=== PATIENT | male | born 1965 | race African-American/Black ===

== ENCOUNTER 2017-02-09 07:04 | Emergency (ER) | payer MEDICAID ==
[~2017-02-09] VITALS: Ht 185.4 cm; Wt 140.6 kg
[~2017-02-09 07:04] MED LIST: ALBUTEROL SULF8.5 GM INH; AZITHROMYCIN250 MG ORAL; BACTRIM-DS1 EA PO; CLINDAMYCIN HC150 MG ORAL; HYDROCHLOROTH12.5 M2 ORAL; IBUPROFEN600 MG ORAL; KEFLEX500 MG PO; NKM; ROBAXIN-750750 MG PO; TYLENOL #21 EA PO; VICODIN 5-5001 EACH PO
[2017-02-09] MEDS ORDERED: ACETAMINOPHEN-1 EAC1 ORAL (07:55)
--- NOTE | 2017-02-09 07:59 | Emergency Room Report ---
History of Present Illness General Chief Complaint: Lower Extremity Injury Source: Patient, Medical Record Present Illness HPI 51YOM walk-in with left inner knee pain from "torn meniscus." Not sure how it happened. Had outpatient MRI that showed this. Saw Orthopedist in January, got injection. Told to come back in a month. Taking ibuprofen Q8 for pain, "not helping." Pain with ambulation but denies joint instability. Denies fever/chills , knee swelling. Allergies: Coded Allergies: PENICILLINS (Verified Allergy, Intermediate, VOMITING/RASH, 10/19/12) Patient History Past Medical History: none Past Surgical History: none Pertinent Family History: none Social History: Denies: alcohol use, drug use, smoking Immunizations: UTD Reviewed Nursing Documentation: PMH: Agreed, PSxH: Agreed Nursing Documentation-PMH Hx Asthma: Yes Hx Cancer: No Hx Gastrointestinal Problems: Yes - appendectomy in 10/2012 Hx Neurological Problems: No Review of Systems All Other Systems: negative except mentioned in HPI Physical Exam Vital Signs Date Time Temp Pulse Resp B/P Pulse Ox O2 Delivery O2 Flow Rate FiO2 02/09/17 07:14 98.1 69 16 114/66 97 Room Air Sp02 EP Interpretation: reviewed, normal General Appearance: normal inspection, well appearing, no apparent distress, alert, GCS 15, non-toxic Head: normocephalic, atraumatic Eyes: bilateral eye EOMI, bilateral eye PERRL ENT: normal ENT inspection, hearing grossly normal, normal voice Neck: normal inspection, full range of motion, supple, no bony tend Respiratory: normal inspection, lungs clear, normal breath sounds, no respiratory distress, no retraction, no wheezing Cardiovascular #1: regular rate, rhythm, no edema Gastrointestinal: normal inspection, normal bowel sounds, non tender, soft, no guarding, no hernia Genitourinary: no CVA tenderness Musculoskeletal: other - Bilateral lower extremities: Dry skin. Chronic tj stasis dermatitis. Left knee: No joint laxity on anterior drawer test, lateral movement. Neurologic: normal inspection, alert, oriented x3, responsive, french binder III-XII nml as tested, motor strength/tone normal, speech normal Psychiatric: normal inspection, judgement/insight normal, mood/affect normal Skin: normal inspection Medical Decision Making Diagnostic Impression: Primary Impression: Left medial knee pain ER Course Left medial knee pain d/t ?torn meniscus No joint effusion or signs of cellulitis or septic joint No laxity of joint Rx T#3 to take with Ibuprofen, ICE Follow up with Ortho DC home Last Vital Signs Date Time Temp Pulse Resp B/P Pulse Ox O2 Delivery O2 Flow Rate FiO2 02/09/17 07:14 98.1 69 16 114/66 97 Room Air Status: improved Disposition: HOME, SELF-CARE Condition: Improved Scripts Acetaminophen With Codeine (T#3) (TYLENOL #3 TAB*) Y Tab 1 TAB ORAL Q8H Y for For Pain, #30 TAB Prov: ANN-MARIE BONILLA M.D. 02/09/17 Patient Instructions: Knee Pain, [id number] Additional Instructions: - Alternate T#3 with Ibuprofen every4-6 hours for pain - Apply ice to medial aspect of left knee - Follow up with Orthopedist at next appointment ANN-MARIE BONILLA M.D. Feb 09, 2017 07:59
[2017-02-09 08:15] VITALS: BP 130/70
== END 2017-02-09 08:30 | disposition home or self-care (01) ==
LOC: EMR 07:32
DX: M25.562 Pain in left knee (principal); Z88.0 Allergy status to penicillin; Z90.89 Acquired absence of other organs
CPT/HCPCS: 99283

== ENCOUNTER 2018-05-07 06:58 | Emergency (ER) | payer MEDICAID ==
[~2018-05-07] VITALS: Ht 188 cm; Wt 186.0 kg
[~2018-05-07 06:58] MED LIST changes: +ACETAMINOPHEN-1 EAC1 ORAL
[2018-05-07 07:45] VITALS: BP 114/69
--- NOTE | 2018-05-07 08:34 | Emergency Room Report ---
History of Present Illness General Chief Complaint: Chest Pain Present Illness HPI This patient c/o three episodes of mild-mod sharp, 1-2 minute duration substernal chest pain. No sob, no diaphoresis. No similar history. First episode while sitting in class, second while watching tv last night, third this morning. He recalls having an unremarkable stress test about a year ago with PMD. CRF: no known Drove to about a month ago Allergies: Coded Allergies: PENICILLINS (Verified Allergy, Intermediate, VOMITING/RASH, 10/19/12) Nursing Documentation-PMH Hx Asthma: Yes Hx Cancer: No Hx Gastrointestinal Problems: Yes - appendectomy in 10/2012 Hx Neurological Problems: No Review of Systems Constitutional: Reports: no symptoms Eye: Reports: no symptoms ENT: Reports: no symptoms Respiratory: Reports: no symptoms Cardiovascular: Reports: no symptoms Gastrointestinal: Reports: no symptoms Genitourinary: Reports: no symptoms Musculoskeletal: Reports: no symptoms Skin: Reports: no symptoms Psychiatric: Reports: no symptoms Neurological: Reports: no symptoms Endocrine: Reports: no symptoms Hematologic/Lymphatic: Reports: no symptoms Allergic: Reports: no symptoms Physical Exam Vital Signs Date Time Temp Pulse Resp B/P (MAP) Pulse Ox O2 Delivery O2 Flow Rate FiO2 05/07/18 07:33 97.4 72 17 114/69 100 Room Air 97.3 Sp02 EP Interpretation: reviewed, normal General Appearance: normal inspection, well appearing, no apparent distress, alert, GCS 15, non-toxic, obese Head: normocephalic, atraumatic Eyes: bilateral eye normal inspection, bilateral eye PERRL, bilateral eye EOMI ENT: normal ENT inspection, hearing grossly normal, normal pharynx, no angioedema, normal voice, moist mucus membranes Neck: normal inspection, full range of motion, supple, no meningismus, no bony tend Respiratory: normal inspection, lungs clear, normal breath sounds, no rhonchi, no respiratory distress, no retraction, no accessory muscle use, no wheezing Cardiovascular #1: normal inspection, regular rate, rhythm, no edema Gastrointestinal: normal inspection, normal bowel sounds, non tender, soft, no mass, non-distended Musculoskeletal: gait/station normal, normal range of motion Neurologic: normal inspection, alert, oriented x3, responsive, motor strength/ tone normal Psychiatric: normal inspection, judgement/insight normal, memory normal Suicide Risk Assessment: Suicidal Ideation: No Had intent to initiate attempt: No Pt's plan for suicide attempt: No Has means to complete attempt: No Skin: normal inspection, normal color, no rash, warm/dry Medical Decision Making Diagnostic Impression: Primary Impression: Chest pain ER Course EMERGENT LABS AND DIAGNOSTIC STUDIES: Lab Results were reviewed by me and interpreted as below. Unremarkable 12-lead EKG Interpretation by Jake Logan MD: Normal Sinus Rhythm at 62 beats per minute Normal axis QT not prolonged Nonspecific ST-T wave changes Overall impression is normal sinus rhythm Radiology Results as interpreted by Radiology below were reviewed by Jake Logan MD : CXR: NAD Nursing Notes Reviewed Previous Medical Records were requested via the electronic health record. EMERGENCY DEPARTMENT COURSE / MEDICAL DECISION MAKING: The patient was placed on a cafeteria monitor, continuous pulse oximetry, and tests as ordered. My differential diagnosis included: ACS, myocardial infarction, angina, pericarditis, aortic dissection, pleurisy, pleural effusion, pneumothorax, pneumonia, PE, costochondritis, PUD, gastritis, GERD, muscular. I observed the patient for a period of time and the patient felt better. On reassessment, the patient's history, vital signs, exam and studies were all reviewed. I will re-evaluate for further workup and recommendation based on the diagnostic testing results and how the patient responds to treatment. My initial impression was: Atypical chest pain. My final impression was the same. I am not worried about PE, since the patient was not complaining of SOB, and did not have hypoxia, hemoptysis, tachycardia or syncope. Chest x-ray was negative with no signs of acute disease. He was advised to arrive back to the ED for new or worsening symptoms. This patient presents with signs and symptoms potentially concerning for coronary ischemia. While it is not possible to be 100% accurate about the etiology of the patient's chest pain at this time (after an ED evaluation.) The patient's MEGHAN Score is: 0. The patient's HEART Score is: 1. I told the patient that the risk of ACS/ischemia is not zero but is very unlikely. The patient confirmed heard my advice and agreed to see their own physician within two days. In addition the name of the on-call childhood development teacher is provided in the discharge papers. Pt. advised to return for further episodes especially if he were to develop exertional chest pain. MEGHAN: age 65 years or older 0 at least 3 risk factors for coronary artery disease 0 prior coronary stenosis of 50% or more 0 ST-segment deviation on ECG at presentation 0 at least two anginal events in prior 24 hours 0 use of aspirin in the prior seven days 0 elevated serum cardiac biomarkers 0 HEART: (0-2 for five variables) History 0 (sharp, one minute, nonexertional) EKG (ST depr = 1mm) 0 Age (45-65) 1 Risk Factors (1-2) 0 Troponin (1-2x) 0 The patient is a good candidate for outpatient care and will be discharged with instructions to follow up with their PMD in 1-2 days. I explained the findings and plan to the patient, who expressed verbal understanding and agreed with plan for discharge and follow up. The patient was given after care instructions and welcomed to return to the ED for any new or worsening symptoms. The patient was stable at the time of discharge. EKG Diagnostic Results Rate: normal Rhythm: NSR ST Segments: no acute changes Other Impression nsr 62 no acute ischemia ASA given to the pt in ED: Yes Rhythm Strip Diag. Results EP Interpretation: yes Rate: 65 Rhythm: NSR Chest X-Ray Diagnostic Results Chest X-Ray Diagnostic Results : Chest X-Ray Ordered: Yes # of Views/Limited/Complete: 1 View Indication: Chest Pain EP Interpretation: Yes Interpretation: no consolidation, no effusion, no pneumothorax, no acute cardiopulmonary disease Impression: No acute disease Last Vital Signs Date Time Temp Pulse Resp B/P (MAP) Pulse Ox O2 Delivery O2 Flow Rate FiO2 05/07/18 07:45 72 17 Room Air 05/07/18 07:45 97.3 114/69 100 97.3 Status: improved Disposition: HOME, SELF-CARE Referrals: [facility],REFERRING (PCP) Patient Instructions: Nonspecific Chest Pain Tonny Logan M.D. May 07, 2018 08:34
[2018-05-07 08:42] LABS: BASOPHILS % (AUTO) 1.6 % (0.0-2.0); HEMATOCRIT 38.2 % (42.0-52.0); LYMPHOCYTES % (AUTO) 30.5 % (20.0-45.0); MEAN CORPUSCULAR VOLUME 87 FL (80-99); MONOCYTES % (AUTO) 8.6 % (1.0-10.0); NEUTROPHILS % (AUTO) 57.3 % (45.0-75.0); PLATELET COUNT 316 K/UL (150-450); RED CELL DISTRIBUTION WIDTH 12.8 % (11.6-14.8); WHITE BLOOD COUNT 4.1 K/UL (4.8-10.8)
[2018-05-07 08:47] LABS: INR 1.3 (0.9-1.1)
[2018-05-07 08:53] LABS: ANION GAP 5 mmol/L (5-15); BLOOD UREA NITROGEN 15 mg/dL (7-18); CALCIUM 9.3 MG/DL (8.5-10.1); CARBON DIOXIDE 28 MMOL/L (21-32); CHLORIDE 105 MMOL/L (98-107); CREATININE 1.2 MG/DL (0.55-1.30); POTASSIUM 4.3 MMOL/L (3.5-5.1); SODIUM 138 MMOL/L (136-145)
[2018-05-07 09:05] LABS: ALANINE AMINOTRANSFERASE 20 U/L (12-78); ALBUMIN 3.1 G/DL (3.4-5.0); ALBUMIN/GLOBULIN RATIO 0.6 (1.0-2.7); ALKALINE PHOSPHATASE 77 U/L (46-116); ASPARTATE AMINO TRANSFERASE 15 U/L (15-37); BILIRUBIN,TOTAL 0.3 MG/DL (0.2-1.0)
[2018-05-07 09:14] LABS: APPEARANCE,URINE CLEAR; BILIRUBIN, URINE NEGATIVE (NEGATIVE); GLUCOSE, URINE (UA) NEGATIVE (NEGATIVE); KETONES,URINE NEGATIVE (NEGATIVE); LEUKOCYTE ESTERASE ,URINE NEGATIVE (NEGATIVE); NITRITE,URINE NEGATIVE (NEGATIVE); PH,URINE 6 (4.5-8.0); PROTEIN,URINE NEGATIVE (NEGATIVE); UROBILINOGEN,URINE 1 MG/DL (0.0-1.0)
[2018-05-07 09:23] LABS: COLOR,URINE YELLOW
[2018-05-07 09:45] VITALS: BP 112/74
--- NOTE | 2018-05-07 11:06 | Diagnostic Imaging Report ---
Indication: Chest pain Comparison: 03/25/2016 A single view chest radiograph was obtained. Findings: Cardiomediastinal appearance is within normal limits for age. Pulmonary vascularity is appropriate. The diaphragmatic contour is smooth and costophrenic angles are sharp. No pleural effusions are identified. The bones are unremarkable. Impression: No acute findings
--- NOTE | 2018-05-07 16:41 | Cardiology Report ---
APPROVED REPORT EKG Measurement Heart [id number] Normal sinus rhythm Normal ECG
== END 2018-05-07 09:51 | disposition home or self-care (01) ==
LOC: EMR 07:39
DX: R07.9 Chest pain, unspecified (principal); J45.909 Unspecified asthma, uncomplicated; Z88.0 Allergy status to penicillin
CPT/HCPCS: 36415; 71045; 80053; 80307; 81001; 83880; 84484; 85025; 85610; 93005; 99284

== ENCOUNTER 2019-02-10 14:40 | Emergency (ER) | payer MEDICAID ==
[~2019-02-10] VITALS: Ht 188 cm; Wt 175.5 kg
--- NOTE | 2019-02-10 14:52 | NUR ---
ED Nurse Note: Pt ahs been experiencing pink R eye x 2 days with yellowish discharge. No blurred vision. AOx4, VSS. Will cont to monitor.
[2019-02-10 14:53] VITALS: BP 114/73
--- NOTE | 2019-02-10 14:56 | Emergency Room Report ---
History of Present Illness General Chief Complaint: Eye Problems Source: Patient Present Illness HPI 53-year-old male with no significant past medical history here complaining of 1 day of irritation, pain and yellow discharge in right eye. Patient reports that he was sitting in a bus yesterday fell asleep and when he woke up he noticed that his right eye is very red accompanied with pressure and yellow discharge. Does not recall any eye trauma or any foreign body in the eye. Denies blurry vision, headache, rhinorrhea, pruritus of the eye. Patient has been using a wet towel to clean his eye however complains of a lot of irritation rating the pain 3 out of 10 denies any sensitivity to light. Denies chest pain, shortness of breath, palpitation, and other associated symptoms Allergies: Coded Allergies: PENICILLINS (Verified Allergy, Intermediate, VOMITING/RASH, 10/19/12) Patient History Past Medical History: see triage record Past Surgical History: unable to obtain Pertinent Family History: none Immunizations: UTD Reviewed Nursing Documentation: PMH: Agreed; PSxH: Agreed Nursing Documentation-PMH Past Medical History: No History, Except For Hx Asthma: Yes Hx Cancer: No Hx Gastrointestinal Problems: Yes - appendectomy in 10/2012 Hx Neurological Problems: No Review of Systems All Other Systems: negative except mentioned in HPI Physical Exam Vital Signs Date Time Temp Pulse Resp B/P (MAP) Pulse Ox O2 Delivery O2 Flow Rate FiO2 02/10/19 14:44 98.2 63 18 114/73 (87) 98 Room Air Sp02 EP Interpretation: reviewed, normal General Appearance: normal inspection, well appearing, no apparent distress, alert Head: normocephalic, atraumatic Eyes: right eye other - Conjunctiva injected with yellow discharge no stye noted ENT: normal ENT inspection, hearing grossly normal Neck: normal inspection, full range of motion Respiratory: normal inspection, chest non-tender, no wheezing Cardiovascular #1: normal inspection, normal peripheral pulses, regular rate, rhythm, no murmur Gastrointestinal: normal inspection, non tender, soft Rectal: deferred Genitourinary: no CVA tenderness Neurologic: normal inspection, alert, oriented x3 Psychiatric: normal inspection, judgement/insight normal Skin: normal inspection, normal color, no rash Lymphatic: normal inspection, no adenopathy Medical Decision Making PA Attestation All my diagnosis and treatment plans were reviewed ad discussed with my supervising physician Dr. Dale Diagnostic Impression: Primary Impression: Bacterial conjunctivitis ER Course 53-year-old male with no significant past medical history here complaining of 1 day of irritation, pain and yellow discharge in right eye. Patient reports that he was sitting in a bus yesterday fell asleep and when he woke up he noticed that his right eye is very red accompanied with pressure and yellow discharge. Does not recall any eye trauma or any foreign body in the eye. Denies blurry vision, headache, rhinorrhea, pruritus of the eye. Patient has been using a wet towel to clean his eye however complains of a lot of irritation rating the pain 3 out of 10 denies any sensitivity to light. Denies chest pain, shortness of breath, palpitation, and other associated symptoms Ddx considered but are not limited to: bacterial conjunctivitis, allergic conjunctivitis, viral conjunctivitis, periorbital cellulitis, global trauma Vital signs: are WNL, pt. is afebrile H&PE are most consistent with: Bacterial conjunctivitis ORDERS: Polymyxin B ophthalmic eyedrop ED INTERVENTIONS: None required at this time. DISCHARGE: At this time pt. is stable for d/c to home. Will provide printed patient care instructions, and any necessary prescriptions. Care plan and follow up instructions have been discussed with the patient prior to discharge. Advised to follow-up with her primary care provider and as needed with veterinary x ray operator Last Vital Signs Date Time Temp Pulse Resp B/P (MAP) Pulse Ox O2 Delivery O2 Flow Rate FiO2 02/10/19 14:53 98.2 79 18 114/73 98 Room Air Disposition: HOME, SELF-CARE Condition: Stable Scripts Polymyxin B Sulf/Trimethoprim (POLYMYXIN B-TMP EYE DROPS) 10 Ml Drops 2 DROP OP Q8HR for 7 Days, #10 ML Prov: Yann Grimm 02/10/19 Patient Instructions: Bacterial Conjunctivitis, [id number] Additional Instructions: Follow-up with your primary care provider and referral to veterinary x ray operator needed Yann Grimm Feb 10, 2019 14:56
[2019-02-10] MEDS ORDERED: POLYMYXIN B-TMP10 M1 OP (14:59)
[2019-02-10 15:02] VITALS: BP 114/73
== END 2019-02-10 15:02 | disposition home or self-care (01) ==
LOC: EMR 14:58
DX: H10.9 Unspecified conjunctivitis (principal); Z88.0 Allergy status to penicillin; Z90.89 Acquired absence of other organs
CPT/HCPCS: 99282

== ENCOUNTER 2019-06-16 15:04 | Emergency (ER) | payer MEDICAID ==
[~2019-06-16] VITALS: Ht 188 cm; Wt 145.1 kg
[~2019-06-16 15:04] MED LIST changes: +POLYMYXIN B-TMP10 M1 OP
[2019-06-16 15:15] VITALS: BP 128/64
[2019-06-16] MEDS ORDERED: Aspirin Baby 81mg ORAL ONE (15:15)
[2019-06-16] MEDS ORDERED: Ketorolac 30mg Inj IV ONE (15:15)
--- NOTE | 2019-06-16 15:15 | NUR ---
ED Nurse Note: Suze walked into ED c/o left sided sharp chest pain non radiating that he rates a 8/10. patient is states that this has been an on going issue since 1200 today. [place] and suddenly began experiencing pain, states that this has been happening intermittently for the past month, patient has no history of any cardiac issues. patient is alert and oriented x4, ambulatory with a cane, patient was placed on a piece dye worker, EKG done which showed Normal Sinus Rhytm, IV started on right AC 20 gauge, Dr. dsouza notified and aware
--- NOTE | 2019-06-16 15:17 | Emergency Room Report ---
History of Present Illness General Chief Complaint: Chest Pain Present Illness HPI Disclaimer: Please note that this report is being documented using DRAGON technology. This can lead to erroneous entry secondary to incorrect interpretation by the dictating instrument. HPI: 53-year-old male with history of obesity presents for evaluation of chest pain. Symptoms began approximately 11 AM while the patient was gambling at the [employer]. He states he was at rest and not exerting himself in any way. He reports a sharp and stabbing pain over the left chest wall that does not radiate. Pain is exacerbated by bending and twisting motion as well as movement of the left arm. No shortness of breath, no diaphoresis, no nausea, no vomiting and denies back pain. No recent injury, cough, flulike symptoms, URI symptoms or GI symptoms. States he takes no medications. He has chronic edema in the legs which are swollen currently and being followed by his PMD. Non-smoker. Some family history on his mother side of cardiac disease. Denies diabetes. PMH: Obesity, lower extremity edema PSH: Left ankle repair Allergies: Penicillins Social Hx: Non-smoker, occasional alcohol use Allergies: Coded Allergies: PENICILLINS (Verified Allergy, Intermediate, VOMITING/RASH, 10/19/12) Nursing Documentation-PMH Hx Asthma: Yes Hx Cancer: No Hx Gastrointestinal Problems: Yes - appendectomy in 10/2012 Hx Neurological Problems: No Review of Systems All Other Systems: negative except mentioned in HPI Physical Exam General: Awake and alert, no acute distress HEENT: NC/AT. EOMI. Neck: Supple, trachea midline Chest Wall: Tender to palpation over the sternum and left chest wall. No crepitus or deformity. Cardiovascular: RRR. S1 and S2 normal. No murmur appreciated Resp: Normal work of breathing. No cough, wheezing or crackles appreciated Abdomen: Abdomen is soft, very obese, nondistended. Nontender Skin: Intact. No abrasions, laceration or rash over the exposed skin MSK: Normal tone and bulk. Moving all extremities. No obvious deformity. Tense edema over the lower extremities up to the knees bilaterally. Neuro: Awake and alert. Mentating appropriately. Medical Decision Making Diagnostic Impression: Primary Impression: Chest pain ER Course 53-year-old male with no reported medical history presents for evaluation of chest pain beginning approximately 4 hours ago. Differential includes but is not limited to ACS, angina, musculoskeletal pain, bronchitis, pneumonia, pneumothorax to name a few. Overall, the patient's vital signs are stable, physical exam is reassuring with reproducible pain over the left chest wall. Will obtain EKG, chest x-ray and cardiac labs however the patient is low risk according to heart score criteria and if work-up is unremarkable he may be safe for discharge and outpatient follow-up. Laboratory Tests Test 06/16/19 15:15 White Blood Count 4.9 K/UL (4.8-10.8) Red Blood Count 4.49 M/UL (4.70-6.10) L Hemoglobin 12.7 G/DL (14.2-18.0) L Hematocrit 39.3 % (42.0-52.0) L Mean Corpuscular Volume 87 FL (80-99) Mean Corpuscular Hemoglobin 28.2 PG (27.0-31.0) Mean Corpuscular Hemoglobin Concent 32.2 G/DL (32.0-36.0) Red Cell Distribution Width 13.1 % (11.6-14.8) Platelet Count 287 K/UL (150-450) Mean Platelet Volume 5.3 FL (6.5-10.1) L Neutrophils (%) (Auto) 50.7 % (45.0-75.0) Lymphocytes (%) (Auto) 39.2 % (20.0-45.0) Monocytes (%) (Auto) 6.4 % (1.0-10.0) Eosinophils (%) (Auto) 2.9 % (0.0-3.0) Basophils (%) (Auto) 0.9 % (0.0-2.0) Sodium Level 140 MMOL/L (136-145) Potassium Level 3.9 MMOL/L (3.5-5.1) Chloride Level 105 MMOL/L (98-107) Carbon Dioxide Level 30 MMOL/L (21-32) Anion Gap 5 mmol/L (5-15) Blood Urea Nitrogen 9 mg/dL (7-18) Creatinine 1.1 MG/DL (0.55-1.30) Estimate Glomerular Filtration Rate > 60 mL/min (>60) Glucose Level 98 MG/DL (74-106) Calcium Level 9.0 MG/DL (8.5-10.1) Total Bilirubin 0.5 MG/DL (0.2-1.0) Aspartate Amino Transferase (AST) 17 U/L (15-37) Alanine Aminotransferase (ALT) 27 U/L (12-78) Alkaline Phosphatase 87 U/L (46-116) Total Creatine Kinase 138 U/L (26-308) Creatine Kinase MB 0.7 NG/ML (0.0-3.6) Creatine Kinase MB Relative Index 0.5 Troponin I 0.000 ng/mL (0.000-0.056) Pro-B-Type Natriuretic Peptide 9 pg/mL (0-125) Total Protein 8.1 G/DL (6.4-8.2) Albumin 3.3 G/DL (3.4-5.0) L Globulin 4.8 g/dL Albumin/Globulin Ratio 0.7 (1.0-2.7) L EKG Diagnostic Results EKG Time: 15:22 Rate: normal Rhythm: NSR ST Segments: no acute changes Other Impression Sinus rhythm, normal axis, normal intervals, no ST segment changes. Rhythm Strip Diag. Results Rhythm Strip Time: 15:22 EP Interpretation: yes Rate: 80s Rhythm: NSR, no PVC's, no ectopy Chest X-Ray Diagnostic Results Chest X-Ray Diagnostic Results : # of Views/Limited/Complete: 1 View Indication: Chest Pain EP Interpretation: Yes Interpretation: no consolidation, no effusion, no pneumothorax, no acute cardiopulmonary disease Impression: No acute disease Reevaluation Time: 16:44 Status: unchanged Reevaluation Impression Labs have returned largely within normal limits. Troponin and acute cardiac labs are unremarkable. Chest x-ray does not show clear infiltrate. Patient likely has some muscular skeletal chest pain that can be worked up as an outpatient. Advised him to use Tylenol and Motrin as well as getting a flu shot this year. He recently had his annual physical but will call his PMD to arrange reevaluation regarding his recent chest pain. We discussed reasons to return to the emergency department. He understands and agrees with this treatment plan will be discharged home. Disposition: HOME, SELF-CARE Condition: Stable Gabino Raymundo MD Jun 16, 2019 15:17
[2019-06-16] MEDS ORDERED: NKM (15:18)
[2019-06-16 15:25] LABS: BASOPHILS % (AUTO) 0.9 % (0.0-2.0); EOSINOPHILS % (AUTO) 2.9 % (0.0-3.0); HEMATOCRIT 39.3 % (42.0-52.0); HEMOGLOBIN 12.7 G/DL (14.2-18.0); LYMPHOCYTES % (AUTO) 39.2 % (20.0-45.0); MEAN CORPUSCULAR VOLUME 87 FL (80-99); MONOCYTES % (AUTO) 6.4 % (1.0-10.0); NEUTROPHILS % (AUTO) 50.7 % (45.0-75.0); PLATELET COUNT 287 K/UL (150-450); RED BLOOD COUNT 4.49 M/UL (4.70-6.10); RED CELL DISTRIBUTION WIDTH 13.1 % (11.6-14.8); WHITE BLOOD COUNT 4.9 K/UL (4.8-10.8)
--- NOTE | 2019-06-16 15:53 | Diagnostic Imaging Report ---
Indication: Chest pain Technique: One view of the chest Comparison: 05/07/2018 Findings: Heart size borderline enlarged. There is equivocal mild perihilar interstitial congestion in central bronchial wall thickening. No focal airspace consolidation. Pleural spaces are clear Impression: Mild clinically Equivocal minimal central interstitial congestion and central bronchial wall thickening. Correlate with clinical findings
[2019-06-16 16:05] LABS: ALANINE AMINOTRANSFERASE 27 U/L (12-78); ALBUMIN 3.3 G/DL (3.4-5.0); ALBUMIN/GLOBULIN RATIO 0.7 (1.0-2.7); ALKALINE PHOSPHATASE 87 U/L (46-116); ANION GAP 5 mmol/L (5-15); ASPARTATE AMINO TRANSFERASE 17 U/L (15-37); BILIRUBIN,TOTAL 0.5 MG/DL (0.2-1.0); BLOOD UREA NITROGEN 9 mg/dL (7-18); CARBON DIOXIDE 30 MMOL/L (21-32); CHLORIDE 105 MMOL/L (98-107); CKMB 0.7 NG/ML (0.0-3.6); CREATINE KINASE 138 U/L (26-308); CREATININE 1.1 MG/DL (0.55-1.30); POTASSIUM 3.9 MMOL/L (3.5-5.1); SODIUM 140 MMOL/L (136-145)
[2019-06-16 16:47] VITALS: BP 110/62
--- NOTE | 2019-06-16 16:47 | NUR ---
ER DISCHARGE NOTE: Patient is cleared to be discharged per ERMD, pt is aox4, on room air, with stable vital signs. pt was given dc instructions, pt was able to verbalize understanding, pt id band and iv site removed without complications. pt is able to ambulate with a cane pt took all belongings. Suze was advised to follow up with PMD within the next week.
--- NOTE | 2019-06-19 15:34 | Cardiology Report ---
APPROVED REPORT EKG Measurement Heart [id number] Normal sinus rhythm with sinus arrhythmia Normal ECG
== END 2019-06-16 16:47 | disposition home or self-care (01) ==
LOC: EMR 15:40
DX: R07.9 Chest pain, unspecified (principal); J45.909 Unspecified asthma, uncomplicated; Z88.0 Allergy status to penicillin; Z90.49 Acquired absence of other specified parts of digestive tract; E66.9 Obesity, unspecified; Z68.41 Body mass index [BMI] 40.0-44.9, adult
CPT/HCPCS: 36415; 71045; 80053; 82550; 82553; 83880; 84484; 85025; 93005; 96374; J1885; Z7502; 99284

== ENCOUNTER 2019-11-30 20:57 | Emergency (ER) | payer MEDICAID ==
[~2019-11-30] VITALS: Ht 188 cm; Wt 219.1 kg
[2019-11-30 20:57] VITALS: BP 138/80
--- NOTE | 2019-11-30 20:57 | NUR ---
ED Nurse Note: Patient BIBMilady RA29 from home c/o left chest pain started couple hours ago. Reports pressure on his left chest, non radiating. Pt is coughing started this AM, no fever, no recent travel. Per EMS, pt was given aspirin and nitro bellman captain. Pt placed on editorial specialist.
--- NOTE | 2019-11-30 21:10 | NUR ---
ED Nurse Note: IV line established. Blood specimen collected and sent to lab.
--- NOTE | 2019-11-30 21:19 | Emergency Room Report ---
History of Present Illness General Chief Complaint: Chest Pain Source: Patient Present Illness HPI Disclaimer: Please note that this report is being documented using [employer] technology. This can lead to erroneous entry secondary to incorrect interpretation by the dictating instrument. HPI: 54-year-old male presents for evaluation of chest pain. Symptoms began approximately 1 hour ago. He was at rest when he suddenly began to experience sharp stabbing pain in the center of his chest. Does not radiate. Pain is exacerbated by bending and twisting motion as well as movement of the left arm. No shortness of breath, no diaphoresis, no nausea, no vomiting and denies back pain. Denies fever, chills, nasal congestion, sore throat, constipation, diarrhea. He was given nitroglycerin and aspirin by EMS bring his pain from an 8 to a 5. Non-smoker. Some family history on his mother side of cardiac disease. Denies diabetes. Patient states he has had a similar chest pain in the past multiple times. All work-ups thus far been negative. He had a stress test approximately 2 years ago he states was unremarkable. 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 PMH: Obesity, lower extremity edema PSH: Left ankle repair Allergies: Penicillins Social Hx: Non-smoker, occasional alcohol use COVID-19 risk:Contact w/high r: No COVID-19 risk:Travel to affect: No Has patient experienced ravi: No Allergies: Coded Allergies: PENICILLINS (Verified Allergy, Intermediate, VOMITING/RASH, 10/19/12) Nursing Documentation-PMH Hx Asthma: Yes Hx Cancer: No Hx Gastrointestinal Problems: Yes - appendectomy in 10/2012 Hx Neurological Problems: No Review of Systems All Other Systems: negative except mentioned in HPI Physical Exam Vital Signs Date Time Temp Pulse Resp B/P (MAP) Pulse Ox O2 Delivery O2 Flow Rate FiO2 11/30/19 20:52 98.2 101 20 138/80 (99) 96 Room Air General: Awake and alert, no acute distress HEENT: NC/AT. EOMI. Neck: Supple, trachea midline Chest Wall: No deformity. Tenderness palpation over the sternum. Cardiovascular: Mildly tachycardic. S1 and S2 normal. No murmur appreciated Resp: Normal work of breathing. No cough, wheezing or crackles appreciated Abdomen: Abdomen is soft, nondistended. Nontender Skin: Intact. No abrasions, laceration or rash over the exposed skin MSK: Normal tone and bulk. Moving all extremities. No obvious deformity. Neuro: Awake and alert. Mentating appropriately. Medical Decision Making Diagnostic Impression: Primary Impression: Chest pain ER Course Is a 54-year-old male presenting for evaluation of chest pain. Differential includes was not limited to musculoskeletal chest pain, spasm, esophageal spasm , ACS, angina, bronchitis, pneumonia to name a few. Will obtain EKG, chest x- ray, cardiac enzymes. He arrives with stable vital signs though borderline tachycardia. Pain appears to be improving. Laboratory Tests Test 11/30/19 21:16 White Blood Count 8.0 K/UL (4.8-10.8) Red Blood Count 4.24 M/UL (4.70-6.10) L Hemoglobin 12.1 G/DL (14.2-18.0) L Hematocrit 38.0 % (42.0-52.0) L Mean Corpuscular Volume 90 FL (80-99) Mean Corpuscular Hemoglobin 28.6 PG (27.0-31.0) Mean Corpuscular Hemoglobin Concent 32.0 G/DL (32.0-36.0) Red Cell Distribution Width 14.0 % (11.6-14.8) Platelet Count 204 K/UL (150-450) Mean Platelet Volume 5.9 FL (6.5-10.1) L Neutrophils (%) (Auto) 66.1 % (45.0-75.0) Lymphocytes (%) (Auto) 21.9 % (20.0-45.0) Monocytes (%) (Auto) 8.7 % (1.0-10.0) Eosinophils (%) (Auto) 2.1 % (0.0-3.0) Basophils (%) (Auto) 1.3 % (0.0-2.0) Sodium Level 139 MMOL/L (136-145) Potassium Level 4.0 MMOL/L (3.5-5.1) Chloride Level 105 MMOL/L (98-107) Carbon Dioxide Level 26 MMOL/L (21-32) Anion Gap 8 mmol/L (5-15) Blood Urea Nitrogen 15 mg/dL (7-18) Creatinine 1.2 MG/DL (0.55-1.30) Estimated Glomerular Filtration Rate > 60 mL/min (>60) Glucose Level 118 MG/DL (74-106) H Calcium Level 9.1 MG/DL (8.5-10.1) Total Bilirubin 0.3 MG/DL (0.2-1.0) Aspartate Amino Transferase (AST) 21 U/L (15-37) Alanine Aminotransferase (ALT) 29 U/L (12-78) Alkaline Phosphatase 77 U/L (46-116) Troponin I 0.000 ng/mL (0.000-0.056) Total Protein 7.9 G/DL (6.4-8.2) Albumin 3.1 G/DL (3.4-5.0) L Globulin 4.8 g/dL Albumin/Globulin Ratio 0.6 (1.0-2.7) L EKG Diagnostic Results EKG Time: 20:58 Rate: tachycardiac Rhythm: NSR ST Segments: no acute changes Other Impression Sinus tachycardia, normal axis, normal intervals, no ST segment changes Rhythm Strip Diag. Results Rhythm Strip Time: 20:58 EP Interpretation: yes Rate: 100s Rhythm: NSR Chest X-Ray Diagnostic Results Chest X-Ray Diagnostic Results : Chest X-Ray Ordered: Yes # of Views/Limited/Complete: 1 View Indication: Chest Pain EP Interpretation: Yes Interpretation: no consolidation, no effusion, no pneumothorax, no acute cardiopulmonary disease Impression: No acute disease Electronically Signed by: Electronically signed by Dr. Gabino Raymundo Reevaluation Time: 23:01 Last Vital Signs Date Time Temp Pulse Resp B/P (MAP) Pulse Ox O2 Delivery O2 Flow Rate FiO2 11/30/19 20:52 98.2 101 20 138/80 (99) 96 Room Air Reevaluation Impression EKG, chest x-ray, cardiac enzymes have all returned within normal limits. Patient's chest pain improved after receiving Toradol and GI cocktail. There may be an element of GERD or this may be a viral syndrome. The patient will be given quarantine instructions and remain in isolation for minimum 14 days. He will follow-up with his PMD as soon as possible to schedule an outpatient stress test and discuss today's visit. Patient is stable for outpatient follow- up. Does not require immediate hospitalization at this time. We did discussed reasons to return to the emergency department. I will refill his albuterol prescription and start him on antacid as well. He can return with new or worsening symptoms. Disposition: HOME, SELF-CARE Condition: Stable Scripts Acetaminophen* (ACETAMINOPHEN 325MG TABLET*) 325 Mg Tablet 650 MG ORAL Q6H PRN for For Pain, #40 TAB Prov: Gabino Raymundo MD 11/30/19 Famotidine* (Pepcid 20mg tablet*) 20 Mg Tablet 20 MG ORAL DAILY, #30 TAB 0 Refills Prov: Gabino Raymundo MD 11/30/19 Albuterol Sulfate* (ALBUTEROL SULFATE MDI*) 8.5 Gm Hfa.aer.ad 2 PUFF INH Q4H PRN for cough/wheezing, #1 EA 0 Refills Prov: Gabino Raymundo MD 11/30/19 Gabino Raymundo MD Nov 30, 2019 21:19
--- NOTE | 2019-11-30 21:21 | NUR ---
ED Nurse Note: Xray at bedside.
[2019-11-30 21:32] LABS: BASOPHILS % (AUTO) 1.3 % (0.0-2.0); EOSINOPHILS % (AUTO) 2.1 % (0.0-3.0); HEMOGLOBIN 12.1 G/DL (14.2-18.0); LYMPHOCYTES % (AUTO) 21.9 % (20.0-45.0); MEAN CORPUSCULAR VOLUME 90 FL (80-99); MONOCYTES % (AUTO) 8.7 % (1.0-10.0); NEUTROPHILS % (AUTO) 66.1 % (45.0-75.0); PLATELET COUNT 204 K/UL (150-450); RED BLOOD COUNT 4.24 M/UL (4.70-6.10)
[2019-11-30 21:50] LABS: ANION GAP 8 mmol/L (5-15); BLOOD UREA NITROGEN 15 mg/dL (7-18); CALCIUM 9.1 MG/DL (8.5-10.1); CARBON DIOXIDE 26 MMOL/L (21-32); CHLORIDE 105 MMOL/L (98-107); CREATININE 1.2 MG/DL (0.55-1.30); SODIUM 139 MMOL/L (136-145)
[2019-11-30 21:55] LABS: ALANINE AMINOTRANSFERASE 29 U/L (12-78); ALBUMIN 3.1 G/DL (3.4-5.0); ALBUMIN/GLOBULIN RATIO 0.6 (1.0-2.7); ALKALINE PHOSPHATASE 77 U/L (46-116); ASPARTATE AMINO TRANSFERASE 21 U/L (15-37); BILIRUBIN,TOTAL 0.3 MG/DL (0.2-1.0)
[2019-11-30] MEDS ORDERED: Ketorolac 30mg Inj IV ONE (22:15)
[2019-11-30] MEDS ORDERED: FAMOTIDINE20 MG ORAL (22:28)
[2019-11-30] MEDS ORDERED: ALBUTEROL SULF8.5 GM INH (22:28)
[2019-11-30] MEDS ORDERED: ACETAMINOPHEN325 M1 ORAL (22:28)
[2019-11-30] MEDS ORDERED: Dicyclomine HCl 10mg/5ml oral soln ORAL ONE (22:30)
[2019-11-30] MEDS ORDERED: Lidocaine 2% Visc 15ml soln ORAL ONE (22:30)
[2019-11-30] MEDS ORDERED: Mylanta II UD 30ml ORAL ONE (22:30)
[2019-11-30 23:20] VITALS: BP 116/70
--- NOTE | 2019-11-30 23:20 | NUR ---
ED Nurse Note: Pt cleared by ERMD for discharge. DC instructions was given and explained to pt and verbalized understanding of teachings. Prescription was sent electronically ot the pharmacy of choice. All medical deviecs such as ID band removed. Pt is AAO x4, ambulatory and left with all personal belongings. Pt will take a taxi going home.
--- NOTE | 2019-12-01 12:17 | Diagnostic Imaging Report ---
Indication: Dyspnea Comparison: 06/16/2019 A single view chest radiograph was obtained. Findings: Cardiomediastinal appearance is within normal limits for age. The lungs are clear. Pulmonary vascularity is appropriate. The diaphragmatic contour is smooth and costophrenic angles are sharp. No pleural effusions are identified. The bones are unremarkable. Impression: No acute findings
== END 2019-11-30 23:20 | disposition home or self-care (01) ==
LOC: EDBD 20:57 → EMR 21:38
DX: R07.9 Chest pain, unspecified (principal); Z88.0 Allergy status to penicillin; Z90.89 Acquired absence of other organs; R00.0 Tachycardia, unspecified
CPT/HCPCS: 36415; 71045; 80053; 84484; 85025; 96374; J1885; Z7502; 99284

== ENCOUNTER 2019-12-06 19:06 | Emergency (ER) | payer MEDICAID ==
[~2019-12-06] VITALS: Ht 177.8 cm; Wt 158.8 kg
[2019-12-06 19:06] VITALS: BP 175/88
[~2019-12-06 19:06] MED LIST changes: +ACETAMINOPHEN325 M1 ORAL; +FAMOTIDINE20 MG ORAL
[2019-12-06] MEDS ORDERED: Solu-MEDROL 125mg Inj IVP ONE (19:30)
[2019-12-06] MEDS ORDERED: Terbutaline 1mg/ml Inj SUBQ ONE (19:30)
--- NOTE | 2019-12-06 19:52 | Emergency Room Report ---
History of Present Illness General Chief Complaint: Upper Respiratory Illness Source: Patient, EMS Present Illness HPI Patient is a 54-year-old male who presents after increased difficulty with breathing. Prior history of asthma. Reports having had increased difficulty breathing since last ER visit. He reports having intermittent productive cough with green sputum. Reports prior history of asthma. States he vomited approximate 4 times earlier today.Denies previous fever. Reports taking Tylenol prior to arrival.Denies any change in leg swelling. Allergies: Coded Allergies: PENICILLINS (Verified Allergy, Intermediate, VOMITING/RASH, 10/19/12) COVID-19 Screening Contact w/high risk pt: No Recent Travel to affected area: No Experienced COVID-19 symptoms?: No Patient History Past Medical History: see triage record Reviewed Nursing Documentation: PMH: Agreed; PSxH: Agreed Nursing Documentation-PM Past Medical History: No History, Except For Hx Asthma: Yes Hx Cancer: No Hx Gastrointestinal Problems: Yes - appendectomy in 10/2012 Hx Neurological Problems: No Review of Systems All Other Systems: negative except mentioned in HPI Physical Exam Vital Signs Date Time Temp Pulse Resp B/P (MAP) Pulse Ox O2 Delivery O2 Flow Rate FiO2 12/06/19 19:02 100.0 113 22 175/88 (117) 95 Room Air Sp02 EP Interpretation: reviewed, normal General Appearance: normal inspection, well appearing, no apparent distress, alert, GCS 15 Head: atraumatic ENT: normal ENT inspection, hearing grossly normal, normal voice Neck: normal inspection, full range of motion, supple, no bony tend Respiratory: normal inspection, lungs clear, normal breath sounds, no respiratory distress, no retraction, no wheezing Cardiovascular #1: regular rate, rhythm, no edema Gastrointestinal: normal inspection, normal bowel sounds, non tender, soft, no guarding, no hernia Genitourinary: no CVA tenderness Musculoskeletal: normal inspection, back normal, normal range of motion Neurologic: alert, responsive, speech normal, normal inspection Psychiatric: normal inspection, judgement/insight normal, mood/affect normal Medical Decision Making Diagnostic Impression: Primary Impression: Viral respiratory infection Additional Impressions: Suspected 2019 novel coronavirus infection Obesities, morbid Bronchitis ER Course Presented for chest pain and shortness of breath. Differential diagnosis include was not limited to pneumonia, bronchitis, asthma exacerbation, Covid 19 among others. Because of complexity of patient's case laboratory tests and imaging studies were ordered. Patient's laboratory testing showed normal white blood count with lymphopenia. Patient was given IV antiemetics as well as antibiotic medications. He was noted to have diminished exercise tolerance as well as lower oxygen saturation. CT imaging read by radiology showed no evidence of acute infiltrate. Patient's CT findings suggest that the patient has a small effusion. Patient was given breathing treatment after CT imaging did not show any evidence of infiltrates. Patient was advised to follow-up with his primary care physician for recheck. He was advised to return if worse. He was given prescription for steroids as well as medications for discomfort. Labs Test 12/06/19 19:37 12/06/19 20:10 Urine Color Yellow Urine Appearance Slightly cloudy Urine pH 6.5 (4.5-8.0) Urine Specific [place] 1.010 (1.005-1.035) Urine Protein 2+ (NEGATIVE) Urine Glucose (UA) Negative (NEGATIVE) Urine Ketones 2+ (NEGATIVE) Urine Blood 1+ (NEGATIVE) Urine Nitrite Negative (NEGATIVE) Urine Bilirubin Negative (NEGATIVE) Urine Urobilinogen 4 MG/DL (0.0-1.0) Urine Leukocyte Esterase 1+ (NEGATIVE) Urine RBC 0-2 /HPF (0 - 0) Urine WBC 10-15 /HPF (0 - 0) Urine Squamous Epithelial Cells Few /LPF (NONE/OCC) Urine Bacteria Moderate /HPF (NONE) Urine Mucus Moderate /LPF (NONE/OCC) White Blood Count 9.8 K/UL (4.8-10.8) Red Blood Count 4.34 M/UL (4.70-6.10) Hemoglobin 12.2 G/DL (14.2-18.0) Hematocrit 38.6 % (42.0-52.0) Mean Corpuscular Volume 89 FL (80-99) Mean Corpuscular Hemoglobin 28.2 PG (27.0-31.0) Mean Corpuscular Hemoglobin Concent 31.7 G/DL (32.0-36.0) Red Cell Distribution Width 13.4 % (11.6-14.8) Platelet Count 258 K/UL (150-450) Mean Platelet Volume 6.2 FL (6.5-10.1) Neutrophils (%) (Auto) 76.9 % (45.0-75.0) Lymphocytes (%) (Auto) 12.6 % (20.0-45.0) Monocytes (%) (Auto) 8.1 % (1.0-10.0) Eosinophils (%) (Auto) 0.9 % (0.0-3.0) Basophils (%) (Auto) 1.5 % (0.0-2.0) Sodium Level 137 MMOL/L (136-145) Potassium Level 4.4 MMOL/L (3.5-5.1) Chloride Level 99 MMOL/L (98-107) Carbon Dioxide Level 30 MMOL/L (21-32) Anion Gap 8 mmol/L (5-15) Blood Urea Nitrogen 13 mg/dL (7-18) Creatinine 1.2 MG/DL (0.55-1.30) Estimat Glomerular Filtration Rate > 60 mL/min (>60) Glucose Level 109 MG/DL (74-106) Lactic Acid Level 1.90 mmol/L (0.4-2.0) Calcium Level 9.2 MG/DL (8.5-10.1) Total Bilirubin 0.8 MG/DL (0.2-1.0) Aspartate Amino Transf (AST/SGOT) 23 U/L (15-37) Alanine Aminotransferase (ALT/SGPT) 29 U/L (12-78) Alkaline Phosphatase 71 U/L (46-116) Troponin I 0.000 ng/mL (0.000-0.056) Pro-B-Type Natriuretic Peptide 6 pg/mL (0-125) Total Protein 8.5 G/DL (6.4-8.2) Albumin 3.3 G/DL (3.4-5.0) Globulin 5.2 g/dL Albumin/Globulin Ratio 0.6 (1.0-2.7) EKG Diagnostic Results Rate: normal Rhythm: NSR ST Segments: no acute changes Rhythm Strip Diag. Results EP Interpretation: yes Rhythm: NSR, no PVC's, no ectopy Last Vital Signs Date Time Temp Pulse Resp B/P (MAP) Pulse Ox O2 Delivery O2 Flow Rate FiO2 12/06/19 19:02 100.0 113 22 175/88 (117) 95 Room Air Status: improved Disposition: HOME, SELF-CARE Condition: Stable Scripts Hydrocodone Bit/Acetaminophen 5-325* (NORCO 5-325 TABLET*) 1 Each Tablet 1 TAB ORAL Q6H PRN for FOR PAIN, #10 TAB 0 Refills Prov: Kayode Roland MD 12/06/19 Azithromycin* (ZITHROMAX*) 250 Mg Tablet 250 MG ORAL DAILY, #6 TAB 0 Refills Take two tables once daily for 1 day, then one tablet once daily for 4 days. Prov: Kayode Roland MD 12/06/19 Prednisone* (PREDNISONE*) 20 Mg Tablet 40 MG ORAL DAILY, #10 TAB Prov: Kayode Roland MD 12/06/19 Kayode Roland MD Dec 06, 2019 19:52
[2019-12-06] MEDS ORDERED: Metoclopramide 10mg/2ml Inj IVP ONE (20:15)
[2019-12-06 20:49] LABS: BASOPHILS % (AUTO) 1.5 % (0.0-2.0); EOSINOPHILS % (AUTO) 0.9 % (0.0-3.0); HEMATOCRIT 38.6 % (42.0-52.0); HEMOGLOBIN 12.2 G/DL (14.2-18.0); LYMPHOCYTES % (AUTO) 12.6 % (20.0-45.0); MEAN CORPUSCULAR VOLUME 89 FL (80-99); MONOCYTES % (AUTO) 8.1 % (1.0-10.0); NEUTROPHILS % (AUTO) 76.9 % (45.0-75.0); PLATELET COUNT 258 K/UL (150-450); RED BLOOD COUNT 4.34 M/UL (4.70-6.10); RED CELL DISTRIBUTION WIDTH 13.4 % (11.6-14.8); WHITE BLOOD COUNT 9.8 K/UL (4.8-10.8)
[2019-12-06 21:17] LABS: ANION GAP 8 mmol/L (5-15); BLOOD UREA NITROGEN 13 mg/dL (7-18); CALCIUM 9.2 MG/DL (8.5-10.1); CARBON DIOXIDE 30 MMOL/L (21-32); CHLORIDE 99 MMOL/L (98-107); CREATININE 1.2 MG/DL (0.55-1.30); POTASSIUM 4.4 MMOL/L (3.5-5.1); SODIUM 137 MMOL/L (136-145)
[2019-12-06 21:21] LABS: BILIRUBIN, URINE NEGATIVE (NEGATIVE); GLUCOSE, URINE (UA) NEGATIVE (NEGATIVE); KETONES,URINE 2+ (NEGATIVE); LEUKOCYTE ESTERASE ,URINE 1+ (NEGATIVE); NITRITE,URINE NEGATIVE (NEGATIVE); PH,URINE 6.5 (4.5-8.0); PROTEIN,URINE 2+ (NEGATIVE); UROBILINOGEN,URINE 4 MG/DL (0.0-1.0)
[2019-12-06 21:22] LABS: APPEARANCE,URINE SLIGHTLY CLOUDY; COLOR,URINE YELLOW
[2019-12-06 21:28] LABS: ALANINE AMINOTRANSFERASE 29 U/L (12-78); ALBUMIN 3.3 G/DL (3.4-5.0); ALBUMIN/GLOBULIN RATIO 0.6 (1.0-2.7); ALKALINE PHOSPHATASE 71 U/L (46-116); ASPARTATE AMINO TRANSFERASE 23 U/L (15-37); BILIRUBIN,TOTAL 0.8 MG/DL (0.2-1.0)
[2019-12-06] MEDS ORDERED: PREDNISONE20 MG ORAL ×2 (21:33)
[2019-12-06] MEDS ORDERED: NORCO 5-325 TA1 EAC1 ORAL (21:33)
[2019-12-06] MEDS ORDERED: ZITHROMAX250 MG ORAL ×2 (21:33)
[2019-12-06] MEDS ORDERED: HYDROcodone/Acetamin 5/325 tab ORAL ONE (21:45)
[2019-12-06] MEDS ORDERED: Azithromycin 500 MG in D5W 275 ML IVPB ONE (21:45)
[2019-12-06] MEDS ORDERED: Omnipaque-300 100ml vial INJ ONE (21:45)
--- NOTE | 2019-12-06 23:10 | Diagnostic Imaging Report ---
Indication: Chest pain Technique: Continuous helical transaxial imaging of the chest was obtained from the thoracic inlet to the upper abdomen after intravenous nonionic contrast administration. Coronal 2-D reformats were also obtained. Automatic Exposure Control was utilized. Total Dose length Product (DLP): 1650.[address] Dose Index Volume (CTDIvol): 267.3 mGy Comparison: none Findings: Breathing motion limits evaluation. There is no consolidation or interstitial opacities identified. There is suggestion of minimal basal atelectasis and trace left pleural fluid. No adenopathy seen. Gynecomastia noted. The visualized part of the upper abdomen is unremarkable. IMPRESSION: Limited evaluation showing no acute findings [facility] has communicated the preliminary results to the Emergency Department. Their findings are largely concordant with this report. The CT scanner at [facility] is accredited by the [employer] [place] [employer] and the scans are performed using dose optimization techniques as appropriate to a performed exam including Automatic Exposure control.
[2019-12-06] MEDS ORDERED: Albuterol/Ipratropium 3ml neb HHN ONE (23:15)
[2019-12-07 00:02] VITALS: BP 175/88
--- NOTE | 2019-12-07 12:14 | Diagnostic Imaging Report ---
Indication: Dyspnea Comparison: 11/30/2019 A single view chest radiograph was obtained. Findings: There is some pulmonary vascular prominence. Heart size is normal. Lung volumes are low. Bones are unremarkable. IMPRESSION: Mild pulmonary vascular prominence without overt CHF
== END 2019-12-07 00:04 | disposition home or self-care (01) ==
LOC: EDBD 19:06 → EMR 19:35
DX: J06.9 Acute upper respiratory infection, unspecified (principal); E66.01 Morbid (severe) obesity due to excess calories; J20.9 Acute bronchitis, unspecified; Z90.89 Acquired absence of other organs; Z88.0 Allergy status to penicillin; D72.810 Lymphocytopenia; R06.00 Dyspnea, unspecified
CPT/HCPCS: 36415; 71045; 71260; 80053; 81003; 83605; 83880; 84484; 85025; 86710; 87040; 87086; 93005; 96365; 96372; 96375; J0456; J2765; J2930; Q9967; Z7502; 99284; J7620

== ENCOUNTER 2019-12-11 15:32 | Emergency (ER) | payer MEDICAID ==
[~2019-12-11] VITALS: Ht 172.7 cm; Wt 104.3 kg
[~2019-12-11 15:32] MED LIST changes: +NORCO 5-325 TA1 EAC1 ORAL; +PREDNISONE20 MG ORAL; +ZITHROMAX250 MG ORAL
[2019-12-11 15:54] VITALS: BP 161/71
--- NOTE | 2019-12-11 16:05 | Emergency Room Report ---
History of Present Illness General Chief Complaint: Dyspnea/Respdistress Present Illness HPI 54-year-old male with history of asthma was been here multiple times for asthma exacerbation and shortness of breath brought in by paramedics due to shortness of breath x2 weeks. Patient was seen at [facility] few days ago with similar complaints, was discharged with azithromycin, albuterol, and cough syrup. Patient in no distress. Denies chest pain chest pain radiation. Patient is morbidly obese. Oxygenation within normal limits. Afebrile. Patient has made multiple visits to hospital due to shortness of breath. Denies any abdominal pain, nausea vomiting diarrhea. Denies recent travel. Reports that he lives with many people at home and reports that does not want to stay home and want to be admitted. Allergies: Coded Allergies: PENICILLINS (Verified Allergy, Intermediate, VOMITING/RASH, 10/19/12) COVID-19 Screening Contact w/high risk pt: No Recent Travel to affected area: No Experienced COVID-19 symptoms?: No COVID-19 symptoms experienced: Shortness of Breath Patient History Past Medical History: see triage record Past Surgical History: none Pertinent Family History: none Immunizations: UTD Reviewed Nursing Documentation: PMH: Agreed; PSxH: Agreed Nursing Documentation-PMH Hx Asthma: Yes Hx Cancer: No Hx Gastrointestinal Problems: Yes - appendectomy in 10/2012 Hx Neurological Problems: No Review of Systems All Other Systems: negative except mentioned in HPI Physical Exam Vital Signs Date Time Temp Pulse Resp B/P (MAP) Pulse Ox O2 Delivery O2 Flow Rate FiO2 12/11/19 15:28 97.9 90 22 161/71 (101) 99 Room Air Sp02 EP Interpretation: reviewed, normal General Appearance: no apparent distress, alert, GCS 15, non-toxic Head: normocephalic, atraumatic Eyes: bilateral eye normal inspection, bilateral eye PERRL ENT: hearing grossly normal, normal pharynx, no angioedema, normal voice Neck: full range of motion, supple/symm/no masses Respiratory: chest non-tender, lungs clear, normal breath sounds, no rhonchi, no respiratory distress, no retraction, no wheezing Cardiovascular #1: regular rate, rhythm, no edema, no murmur, normal capillary refill Gastrointestinal: non tender, soft Rectal: deferred Genitourinary: no CVA tenderness Musculoskeletal: back normal Neurologic: alert, oriented Psychiatric: judgement/insight normal Skin: no rash Lymphatic: no adenopathy Medical Decision Making PA Attestation All diagnoses and treatment plans were reviewed and discussed with my supervising physician Dr. Combs Diagnostic Impression: Primary Impression: Dyspnea ER Course 54-year-old male with history of asthma was been here multiple times for asthma exacerbation and shortness of breath brought in by paramedics due to shortness of breath x2 weeks. Patient was seen at [facility] few days ago with similar complaints, was discharged with azithromycin, albuterol, and cough syrup. Patient in no distress. Denies chest pain chest pain radiation. Patient is morbidly obese. Oxygenation within normal limits. Afebrile. Patient has made multiple visits to hospital due to shortness of breath. Denies any abdominal pain, nausea vomiting diarrhea. Denies recent travel. Reports that he lives with many people at home and reports that does not want to stay home and want to be admitted. Ddx considered but are not limited to: Coronavirus, bronchitis, PNA, URI viral, bacterial brochitis Vital signs: are WNL, pt. is afebrile H&PE are most consistent with: Dyspnea most likely secondary to coronavirus ORDERS: Chest x-ray, albuterol, guaifenesin ED INTERVENTIONS: None required at this time. DISCHARGE: At this time pt. is stable for d/c to home. Will provide printed patient care instructions, and any necessary prescriptions. Care plan and follow up instructions have been discussed with the patient prior to discharge. At this time patient does not meet criteria for stay in the hospital as vital signs are within normal limits. Advised patient on staying home. Patient keeps insisting on getting admitted as reports that he cannot self isolate at home as he lives with a lot of people. I explained the patient the patient does not meet criteria to stay in hospital at this time as has been responsive to home treatments. Patient oxygenation and temperature within normal limits upon discharge. Chest X-Ray Diagnostic Results Chest X-Ray Diagnostic Results : Chest X-Ray Ordered: Yes # of Views/Limited/Complete: 1 View Indication: Shortness of Breath EP Interpretation: Yes JESSICA Xray: Interpretation reviewed, by supervising MD, and agrees with findings. Interpretation: no consolidation, no effusion, no pneumothorax Impression: No acute disease Electronically Signed by: Yann Stephenson PA-C Last Vital Signs Date Time Temp Pulse Resp B/P (MAP) Pulse Ox O2 Delivery O2 Flow Rate FiO2 12/11/19 15:54 97.9 22 161/71 99 Room Air 12/11/19 15:54 90 Disposition: HOME, SELF-CARE Condition: Stable Scripts Guaifenesin* (GUAIFENESIN*) 100 Mg/5 Ml Liquid 15 ML ORAL Q8H, #120 ML 0 Refills Prov: Yann Grimm 12/11/19 Albuterol Sulfate (VENTOLIN HFA) 18 Gm Hfa.aer.ad 2 PUFFS INH EVERY 6 HOURS, #18 GM 0 Refills Prov: Yann Grimm 12/11/19 Patient Instructions: Shortness of Breath, [id number] Additional Instructions: Take medication as directed, follow-up with your primary doctor, you need to stay home for self quarantine due to Covid 19 precautions for 14 days aYnn Grimm Dec 11, 2019 16:05
--- NOTE | 2019-12-11 16:05 | NUR ---
ED Nurse Note: Patient brought in by ambulance RA 27 from home c/o difficulty breathing since 12/09. Per EMS, pt has hx of asthma and has been having s/s for 2 weeks. Pt is on antibiotics. Patient presented calm, cooperative, AAO x4, VSS at this time.
[2019-12-11] MEDS ORDERED: VENTOLIN HFA18 GM INH (16:06)
[2019-12-11] MEDS ORDERED: GUAIFENESI100 MG/5 M ORAL (16:06)
--- NOTE | 2019-12-11 16:15 | Diagnostic Imaging Report ---
Indication: Chest pain COMPARISON: None Single view the chest obtained. FINDINGS: The area of the costophrenic angle is slightly ill-defined which may be due to mild atelectasis. Pulmonary vascularity is mildly prominent without overt or definite CHF. Heart size is normal. IMPRESSION: Suspected mild left basal atelectasis. Negative exam otherwise
--- NOTE | 2019-12-11 16:47 | NUR ---
ED Nurse Note: Pt cleared by health care Provider for discharge. DC instructions/prescription was given and explained to pt and verbalized understanding of teachings. All medical deviecs such as ID band removed. Pt is AAO x4, ambulatory and left with all personal belongings.
== END 2019-12-11 16:45 | disposition home or self-care (01) ==
LOC: EDBD 15:32 → EMR 15:50
DX: R06.00 Dyspnea, unspecified (principal); E66.01 Morbid (severe) obesity due to excess calories; Z88.0 Allergy status to penicillin; Z90.89 Acquired absence of other organs; Z68.35 Body mass index [BMI] 35.0-35.9, adult
CPT/HCPCS: 71045; Z7502; 99283

== ENCOUNTER 2019-12-12 15:48 | Inpatient (IN) | payer MEDICAID ==
[~2019-12-12] VITALS: Ht 185.4 cm; Wt 214.7 kg
[~2019-12-12 15:48] MED LIST changes: +GUAIFENESI100 MG/5 M ORAL; +VENTOLIN HFA18 GM INH
[2019-12-12 15:50] VITALS: BP 120/73
--- NOTE | 2019-12-12 16:23 | Emergency Room Report ---
History of Present Illness General Chief Complaint: Upper Respiratory Illness Source: Patient Present Illness HPI 54-year-old male history of asthma, morbid obesity presented for cough shortness of breath and vomiting. Patient states he has had cough for the past few weeks. Associated with shortness of breath. He states he developed vomiting today. Occasional diarrhea. Reports chest pain with coughing approximately 6 out of 10. Patient seen twice this week for the same. Seen yesterday within normal checks x-ray in addition earlier this week as well. Patient did complete a course of azithromycin. Patient denies any sick contacts or recent travel. Allergies: Coded Allergies: PENICILLINS (Verified Allergy, Intermediate, VOMITING/RASH, 10/19/12) COVID-19 Screening Contact w/high risk pt: No Recent Travel to affected area: No Experienced COVID-19 symptoms?: Yes COVID-19 symptoms experienced: Shortness of Breath, Cough, Flu-Like Symptoms Patient History Reviewed Nursing Documentation: PMH: Agreed; PSxH: Agreed Nursing Documentation-PMH Hx Asthma: Yes Hx Cancer: No Hx Gastrointestinal Problems: Yes - appendectomy in 10/2012 Hx Neurological Problems: No Review of Systems All Other Systems: negative except mentioned in HPI Physical Exam Vital Signs Date Time Temp Pulse Resp B/P (MAP) Pulse Ox O2 Delivery O2 Flow Rate FiO2 12/12/19 15:36 97.9 118 22 120/73 (89) 95 Room Air Sp02 EP Interpretation: reviewed, normal General Appearance: well appearing, no apparent distress, obese Head: normocephalic, atraumatic Eyes: bilateral eye PERRL, bilateral eye EOMI ENT: hearing grossly normal, moist mucus membranes, nasal congestion Neck: full range of motion, supple Respiratory: lungs clear, normal breath sounds, no rhonchi, no respiratory distress, no retraction, no wheezing Cardiovascular #1: normal peripheral pulses, no murmur, tachycardia Gastrointestinal: non tender, soft, non-distended, no guarding Neurologic: alert, oriented x3, no focal defects Skin: normal color, warm/dry Medical Decision Making Diagnostic Impression: Primary Impression: Shortness of breath Additional Impression: Rule out coronavirus ER Course Differential included but not limited to viral syndrome, pneumonia, coronavirus infection, dehydration, to name a few. On exam patient in no distress. Oxygen saturation around 94%, patient placed on a gurney, was attached to the monitor, O2 saturation varied between the 80s to 90s but did go low with coughing. Laboratory studies did demonstrate evidence of mild leukocytosis. Chest x-ray similar to yesterday did show left lower lobe atelectasis versus infiltrate. Patient given treatment for community-acquired pneumonia with azithromycin and Rocephin. Will be admitted to hospital due to shortness of breath and hypoxia. Influenza was negative. Coronavirus testing was sent on the patient. Laboratory Tests Test 12/12/19 16:08 12/12/19 16:35 Sodium Level 131 MMOL/L (136-145) L Potassium Level 3.7 MMOL/L (3.5-5.1) Chloride Level 98 MMOL/L (98-107) Carbon Dioxide Level 25 MMOL/L (21-32) Anion Gap 8 mmol/L (5-15) Blood Urea Nitrogen 18 mg/dL (7-18) Creatinine 1.4 MG/DL (0.55-1.30) H Estimated Glomerular Filtration Rate > 60 mL/min (>60) Glucose Level 129 MG/DL (74-106) H Calcium Level 9.0 MG/DL (8.5-10.1) Total Bilirubin 0.9 MG/DL (0.2-1.0) Aspartate Amino Transferase (AST) 53 U/L (15-37) H Alanine Aminotransferase (ALT) 70 U/L (12-78) Alkaline Phosphatase 82 U/L (46-116) Troponin I 0.000 ng/mL (0.000-0.056) Pro-B-Type Natriuretic Peptide 38 pg/mL (0-125) Total Protein 8.6 G/DL (6.4-8.2) H Albumin 3.1 G/DL (3.4-5.0) L Globulin 5.5 g/dL Albumin/Globulin Ratio 0.6 (1.0-2.7) L Lipase 88 U/L (73-393) White Blood Count 16.2 K/UL (4.8-10.8) H Red Blood Count 4.54 M/UL (4.70-6.10) L Hemoglobin 12.9 G/DL (14.2-18.0) L Hematocrit 39.7 % (42.0-52.0) L Mean Corpuscular Volume 87 FL (80-99) Mean Corpuscular Hemoglobin 28.4 PG (27.0-31.0) Mean Corpuscular Hemoglobin Concent 32.5 G/DL (32.0-36.0) Red Cell Distribution Width 13.6 % (11.6-14.8) Platelet Count 246 K/UL (150-450) Mean Platelet Volume 6.3 FL (6.5-10.1) L Neutrophils (%) (Auto) 83.9 % (45.0-75.0) H Lymphocytes (%) (Auto) 6.8 % (20.0-45.0) L Monocytes (%) (Auto) 8.2 % (1.0-10.0) Eosinophils (%) (Auto) 0.0 % (0.0-3.0) Basophils (%) (Auto) 1.1 % (0.0-2.0) Microbiology Date/Time Source Procedure Growth Status 12/12/19 17:15 Nasal Nares - Final Complete 12/12/19 17:15 Nasal Nares - Final Complete EKG Diagnostic Results Rate: tachycardiac Rhythm: NSR ST Segments: no acute changes Other Impression Sinus tachycardia Last Vital Signs Date Time Temp Pulse Resp B/P (MAP) Pulse Ox O2 Delivery O2 Flow Rate FiO2 12/12/19 15:36 97.9 118 22 120/73 (89) 95 Room Air Status: unchanged Disposition: ADMITTED INPATIENT Condition: Serious Ramakrishna Combs M.D. Dec 12, 2019 16:23
[2019-12-12 16:49] LABS: BASOPHILS % (AUTO) 1.1 % (0.0-2.0); HEMATOCRIT 39.7 % (42.0-52.0); HEMOGLOBIN 12.9 G/DL (14.2-18.0); LYMPHOCYTES % (AUTO) 6.8 % (20.0-45.0); MEAN CORPUSCULAR VOLUME 87 FL (80-99); MONOCYTES % (AUTO) 8.2 % (1.0-10.0); NEUTROPHILS % (AUTO) 83.9 % (45.0-75.0); PLATELET COUNT 246 K/UL (150-450); RED BLOOD COUNT 4.54 M/UL (4.70-6.10); RED CELL DISTRIBUTION WIDTH 13.6 % (11.6-14.8); WHITE BLOOD COUNT 16.2 K/UL (4.8-10.8)
--- NOTE | 2019-12-12 16:55 | Diagnostic Imaging Report ---
EXAM: XR Chest, 1 View CLINICAL HISTORY: COUGH TECHNIQUE: Frontal view of the chest. COMPARISON: Chest x-ray dated 12/11/19. CT chest dated 12/06/19.. FINDINGS: Lungs: Mild subsegmental atelectasis versus infiltrate in the left lung base, not significantly changed. Mild pulmonary vascular congestion. The lungs are otherwise clear. Pleural space: Unremarkable. The costophrenic angles are sharp. No visible pneumothorax. Heart: Unremarkable. No cardiomegaly. Mediastinum: Unremarkable. Bones/joints: Unremarkable. IMPRESSION: 1. Mild subsegmental atelectasis versus infiltrate in the left lung base, not significantly changed. 2. Mild pulmonary vascular congestion.
[2019-12-12 17:22] LABS: ANION GAP 8 mmol/L (5-15); BLOOD UREA NITROGEN 18 mg/dL (7-18); CARBON DIOXIDE 25 MMOL/L (21-32); CHLORIDE 98 MMOL/L (98-107); CREATININE 1.4 MG/DL (0.55-1.30); POTASSIUM 3.7 MMOL/L (3.5-5.1); SODIUM 131 MMOL/L (136-145)
[2019-12-12 17:25] VITALS: BP 157/76
[2019-12-12 17:32] LABS: ALANINE AMINOTRANSFERASE 70 U/L (12-78); ALBUMIN 3.1 G/DL (3.4-5.0); ALBUMIN/GLOBULIN RATIO 0.6 (1.0-2.7); ALKALINE PHOSPHATASE 82 U/L (46-116); ASPARTATE AMINO TRANSFERASE 53 U/L (15-37); BILIRUBIN,TOTAL 0.9 MG/DL (0.2-1.0)
[2019-12-12] MEDS ORDERED: cefTRIAXone 1 GM in NS 55 ML IVPB ONE (18:30)
[2019-12-12] MEDS ORDERED: Azithromycin 500 MG in NS 275 ML IV ONE (18:30)
[2019-12-12 19:30] VITALS: BP 137/72
[2019-12-12 21:30] VITALS: BP 147/67
--- NOTE | 2019-12-12 21:37 | History & Physical ---
History and Physical History & Physicial History and Physical HPI Patient is a 54-year-old male history of Asthma, Morbid obesity, Chronic lower extremity edema, admitted with cough, shortness of breath and vomiting. Patient states he has had cough for the past few weeks. Associated with shortness of breath. He states he developed vomiting today. Occasional diarrhea. Reports chest pain with coughing approximately 6 out of 10. Patient seen twice this week for the same. Seen yesterday within normal checks x-ray in addition earlier this week as well. Patient did complete a course of azithromycin. Patient denies any sick contacts or recent travel. Noted to have Pulmonary infiltrates, COVID19 R/o initiated Allergies: PENICILLINS Past Medical History: Asthma, Morbid Obesity, Chronic lower extremity edema, Previous appendectomy All Other Systems: negative except mentioned in HPI Physical Exam Vital Signs Noted Date Time Temp Pulse Resp B/P (MAP) Pulse Ox O2 Delivery O2 Flow Rate FiO2 12/12/19 15:36 97.9 118 22 120/73 (89) 95 Room Air General Appearance: well appearing, no apparent distress, obese Head: normocephalic, atraumatic Eyes: bilateral eye PERRL, bilateral eye EOMI ENT: hearing grossly normal, moist mucus membranes, nasal congestion Neck: full range of motion, supple Respiratory: lungs clear, occasional rhonchi/wheezes, no respiratory distress, no retraction, no wheezing Cardiovascular: HS1, HS2 normal, no murmur, tachycardia, normal peripheral pulses, Gastrointestinal: non tender, soft, non-distended, no guarding Neurologic: alert, oriented x3, no focal defects, no seizures Skin: normal color, chronic inspisated lower extremity edema, warm/dry Impression: Pneumonia R/O COVID 19 Asthma Obesity Shortness of breath Chronic edema Lymphopenia Hyponaytremia Plan - IV Antibiotics - Bronchodilators - MDI - Solumedrol - Monitor labs - PPX - Await Viral studies/cultures Laboratory Tests Test 12/12/19 16:08 12/12/19 16:35 Sodium Level 131 MMOL/L (136-145) L Potassium Level 3.7 MMOL/L (3.5-5.1) Chloride Level 98 MMOL/L (98-107) Carbon Dioxide Level 25 MMOL/L (21-32) Anion Gap 8 mmol/L (5-15) Blood Urea Nitrogen 18 mg/dL (7-18) Creatinine 1.4 MG/DL (0.55-1.30) H Estimated Glomerular Filtration Rate > 60 mL/min (>60) Glucose Level 129 MG/DL (74-106) H Calcium Level 9.0 MG/DL (8.5-10.1) Total Bilirubin 0.9 MG/DL (0.2-1.0) Aspartate Amino Transferase (AST) 53 U/L (15-37) H Alanine Aminotransferase (ALT) 70 U/L (12-78) Alkaline Phosphatase 82 U/L (46-116) Troponin I 0.000 ng/mL (0.000-0.056) Pro-B-Type Natriuretic Peptide 38 pg/mL (0-125) Total Protein 8.6 G/DL (6.4-8.2) H Albumin 3.1 G/DL (3.4-5.0) L Globulin 5.5 g/dL Albumin/Globulin Ratio 0.6 (1.0-2.7) L Lipase 88 U/L (73-393) White Blood Count 16.2 K/UL (4.8-10.8) H Red Blood Count 4.54 M/UL (4.70-6.10) L Hemoglobin 12.9 G/DL (14.2-18.0) L Hematocrit 39.7 % (42.0-52.0) L Mean Corpuscular Volume 87 FL (80-99) Mean Corpuscular Hemoglobin 28.4 PG (27.0-31.0) Mean Corpuscular Hemoglobin Concent 32.5 G/DL (32.0-36.0) Red Cell Distribution Width 13.6 % (11.6-14.8) Platelet Count 246 K/UL (150-450) Mean Platelet Volume 6.3 FL (6.5-10.1) L Neutrophils (%) (Auto) 83.9 % (45.0-75.0) H Lymphocytes (%) (Auto) 6.8 % (20.0-45.0) L Monocytes (%) (Auto) 8.2 % (1.0-10.0) Eosinophils (%) (Auto) 0.0 % (0.0-3.0) Basophils (%) (Auto) 1.1 % (0.0-2.0) Microbiology Date/Time Source Procedure Growth Status 12/12/19 17:15 Nasal Nares - Final Complete 12/12/19 17:15 Nasal Nares - Final Complete EKG: Rate: tachycardiac Rhythm: NSR ST Segments: no acute changes Other Impression Sinus tachycardia CXR: Left basal atelectasis versus infiltrates, pulmonary congestion José Luis Vazquez MD Dec 12, 2019 21:37
[2019-12-12 23:11] VITALS: BP 152/75
[2019-12-13 01:30] VITALS: BP 162/79
[2019-12-13 03:15] VITALS: BP 160/76
[2019-12-13] MEDS ORDERED: HYDROcodone/Acetamin 5/325 tab ORAL ONE (03:30)
[2019-12-13] MEDS ORDERED: Morphine Sulfate 4mg/ml Inj (IV USE ONLY) IVP ONE (04:45)
[2019-12-13 05:45] VITALS: BP 134/85
[2019-12-13 07:15] VITALS: BP 145/82
[2019-12-13 09:30] VITALS: BP 129/83
[2019-12-13] MEDS ORDERED: guaiFENesin w/Codeine 5ml Liq ud ORAL STA (10:24)
--- NOTE | 2019-12-13 17:25 | Pulmonology Progress Note ---
Assessment/Plan Assessment/Plan Pulmonary Progress Note HPI Patient is a 54-year-old male history of Asthma, Morbid obesity, Chronic lower extremity edema, admitted with cough, shortness of breath and vomiting. Patient states he has had cough for the past few weeks. Associated with shortness of breath. He states he developed vomiting today. Occasional diarrhea. Reports chest pain with coughing approximately 6 out of 10. Patient seen twice this week for the same. Seen yesterday within normal checks x-ray in addition earlier this week as well. Patient did complete a course of azithromycin. Patient denies any sick contacts or recent travel. Noted to have Pulmonary infiltrates, COVID19 R/o initiated Allergies: PENICILLINS Past Medical History: Asthma, Morbid Obesity, Chronic lower extremity edema, Previous appendectomy All Other Systems: negative except mentioned in HPI Physical Exam Vital Signs Noted General Appearance: well appearing, no apparent distress, obese Head: normocephalic, atraumatic Eyes: bilateral eye PERRL, bilateral eye EOMI ENT: hearing grossly normal, moist mucus membranes, nasal congestion Neck: full range of motion, supple Respiratory: lungs clear, occasional rhonchi/wheezes, no respiratory distress, no retraction, no wheezing Cardiovascular: HS1, HS2 normal, no murmur, tachycardia, normal peripheral pulses, Gastrointestinal: non tender, soft, non-distended, no guarding Neurologic: alert, oriented x3, no focal defects, no seizures Skin: normal color, chronic inspisated lower extremity edema, warm/dry Impression: Pneumonia R/O COVID 19 Asthma Obesity Shortness of breath Chronic edema Lymphopenia Hyponatremia Plan - IV Antibiotics - Bronchodilators - MDI - Solumedrol - Monitor labs - PPX - Await Viral studies/cultures SANDY ANDERSEN Laboratory Tests Noted Test 12/12/19 16:08 12/12/19 16:35 Sodium Level 131 MMOL/L (136-145) L Potassium Level 3.7 MMOL/L (3.5-5.1) Chloride Level 98 MMOL/L (98-107) Carbon Dioxide Level 25 MMOL/L (21-32) Anion Gap 8 mmol/L (5-15) Blood Urea Nitrogen 18 mg/dL (7-18) Creatinine 1.4 MG/DL (0.55-1.30) H Estimated Glomerular Filtration Rate > 60 mL/min (>60) Glucose Level 129 MG/DL (74-106) H Calcium Level 9.0 MG/DL (8.5-10.1) Total Bilirubin 0.9 MG/DL (0.2-1.0) Aspartate Amino Transferase (AST) 53 U/L (15-37) H Alanine Aminotransferase (ALT) 70 U/L (12-78) Alkaline Phosphatase 82 U/L (46-116) Troponin I 0.000 ng/mL (0.000-0.056) Pro-B-Type Natriuretic Peptide 38 pg/mL (0-125) Total Protein 8.6 G/DL (6.4-8.2) H Albumin 3.1 G/DL (3.4-5.0) L Globulin 5.5 g/dL Albumin/Globulin Ratio 0.6 (1.0-2.7) L Lipase 88 U/L (73-393) White Blood Count 16.2 K/UL (4.8-10.8) H Red Blood Count 4.54 M/UL (4.70-6.10) L Hemoglobin 12.9 G/DL (14.2-18.0) L Hematocrit 39.7 % (42.0-52.0) L Mean Corpuscular Volume 87 FL (80-99) Mean Corpuscular Hemoglobin 28.4 PG (27.0-31.0) Mean Corpuscular Hemoglobin Concent 32.5 G/DL (32.0-36.0) Red Cell Distribution Width 13.6 % (11.6-14.8) Platelet Count 246 K/UL (150-450) Mean Platelet Volume 6.3 FL (6.5-10.1) L Neutrophils (%) (Auto) 83.9 % (45.0-75.0) H Lymphocytes (%) (Auto) 6.8 % (20.0-45.0) L Monocytes (%) (Auto) 8.2 % (1.0-10.0) Eosinophils (%) (Auto) 0.0 % (0.0-3.0) Basophils (%) (Auto) 1.1 % (0.0-2.0) Microbiology Date/Time Source Procedure Growth Status 12/12/19 17:15 Nasal Nares - Final Complete 12/12/19 17:15 Nasal Nares - Final Complete EKG: Rate: tachycardiac Rhythm: NSR ST Segments: no acute changes Other Impression Sinus tachycardia CXR: Left basal atelectasis versus infiltrates, pulmonary congestion Subjective ROS Limited/Unobtainable: No Respiratory: Reports: shortness of breath Allergies: Coded Allergies: PENICILLINS (Verified Allergy, Intermediate, VOMITING/RASH, 10/19/12) Objective Last 24 Hour Vital Signs Date Time Temp Pulse Resp B/P (MAP) Pulse Ox O2 Delivery O2 Flow Rate FiO2 12/13/19 09:30 98.2 93 22 129/83 98 Nasal Cannula 4.0 12/13/19 07:15 98.2 97 24 145/82 97 Nasal Cannula 4.0 12/13/19 05:45 97.9 97 20 134/85 96 Nasal Cannula 4.0 12/13/19 05:13 97.9 12/13/19 03:15 97.9 98 22 160/76 96 Nasal Cannula 4.0 12/13/19 01:30 97.9 98 20 162/79 96 Nasal Cannula 4.0 12/12/19 23:11 97.9 98 24 152/75 96 Nasal Cannula 4.0 12/12/19 22:30 97.9 12/12/19 21:30 97.9 99 24 147/67 96 Nasal Cannula 4.0 12/12/19 19:30 97.9 95 24 137/72 95 Nasal Cannula 4.0 12/12/19 17:25 97.9 105 24 157/76 95 Nasal Cannula 4.0 Microbiology Date/Time Source Procedure Growth Status 12/12/19 17:15 Nasal Nares - Final Complete 12/12/19 17:15 Nasal Nares - Final Complete José Luis Vazquez MD Dec 13, 2019 17:25
[2019-12-13] MEDS: Azithromycin 500mg in D5W 275 ML IV SCH (19:30)
[2019-12-13] MEDS ORDERED: Erythromycin Inj 500 MG in NS 110 ML IVPB SCH (20:30)
[2019-12-13 21:45] LABS: HEMATOCRIT 38.9 % (42.0-52.0); HEMOGLOBIN 12.5 G/DL (14.2-18.0); MEAN CORPUSCULAR VOLUME 88 FL (80-99); PLATELET COUNT 241 K/UL (150-450); RED BLOOD COUNT 4.41 M/UL (4.70-6.10); RED CELL DISTRIBUTION WIDTH 13.6 % (11.6-14.8)
[2019-12-13 21:47] LABS: BASOPHILS % (AUTO) 1.4 % (0.0-2.0); LYMPHOCYTES % (AUTO) 7.2 % (20.0-45.0); MONOCYTES % (AUTO) 9.8 % (1.0-10.0); NEUTROPHILS % (AUTO) 81.6 % (45.0-75.0)
[2019-12-13 21:54] VITALS: BP 152/67
[2019-12-13 21:58] LABS: ANION GAP 14 mmol/L (5-15); BLOOD UREA NITROGEN 15 mg/dL (7-18); CALCIUM 8.8 MG/DL (8.5-10.1); CARBON DIOXIDE 22 MMOL/L (21-32); CHLORIDE 99 MMOL/L (98-107); CREATININE 1.4 MG/DL (0.55-1.30); SODIUM 135 MMOL/L (136-145)
[2019-12-13] MEDS: Solu-MEDROL 40mg Inj IVP SCH (22:52)
[2019-12-13] MEDS: D5 1/2NS 1,000 ML IV SCH (22:54)
[2019-12-13] MEDS: Heparin 5000 units/ml inj SUBQ SCH (23:11)
[2019-12-14 00:38] VITALS: BP 148/85
[2019-12-14] MEDS: Guaifenesin/DM 10ml syrup ORAL PRN ×2 (00:38→23:24)
[2019-12-14] MEDS: Hydromorphone 0.5mg/0.5ml inj IVP PRN ×4 (00:39→18:12)
[2019-12-14 04:00] VITALS: BP 138/82
[2019-12-14 08:00] VITALS: BP 126/85
[2019-12-14] MEDS: Solu-MEDROL 40mg Inj IVP SCH ×2 (09:57→20:23)
[2019-12-14] MEDS: Heparin 5000 units/ml inj SUBQ SCH ×2 (10:00→20:25)
--- NOTE | 2019-12-14 10:18 | Pulmonology Progress Note ---
Assessment/Plan Assessment/Plan Impression: Pneumonia R/O COVID 19 Asthma Obesity Shortness of breath Chronic edema Lymphopenia Hyponatremia Plan - IV Antibiotics - Bronchodilators - MDI - Taper Solumedrol - Monitor labs - PPX - Await Viral studies/cultures - ID evaluation impression, plan, and exam edited and reviewed in detail care discussed with RN Subjective Allergies: Coded Allergies: PENICILLINS (Verified Allergy, Intermediate, VOMITING/RASH, 10/19/12) Subjective mild cough care noted has some pain Objective Last 24 Hour Vital Signs Date Time Temp Pulse Resp B/P (MAP) Pulse Ox O2 Delivery O2 Flow Rate FiO2 12/14/19 04:00 95.9 89 138/82 (100) 12/14/19 04:00 89 12/14/19 00:38 103 148/85 (106) 12/14/19 00:00 99 12/13/19 22:02 Nasal Cannula 2.0 12/13/19 21:54 97.9 98 152/67 (95) 12/13/19 21:00 100.5 108 20 123/80 97 Nasal Cannula Objective WDWN NAD reduced breath sounds bilaterally without rhonchi or wheeze [id number] without MRG NABS nontender no HSM no CCE nonfocal Microbiology Date/Time Source Procedure Growth Status 12/12/19 17:15 Nasal Nares - Final Complete 12/12/19 17:15 Nasal Nares - Final Complete Laboratory Tests 12/13/19 21:35: White Blood Count 18.0H, Red Blood Count 4.41L, Hemoglobin 12.5L, Hematocrit 38.9L, Mean Corpuscular Volume 88, Mean Corpuscular Hemoglobin 28.3, Mean Corpuscular Hemoglobin Concent 32.1, Red Cell Distribution Width 13.6, Platelet Count 241, Mean Platelet Volume 5.9L, Neutrophils (%) (Auto) 81.6H, Lymphocytes (%) (Auto) 7.2L, Monocytes (%) (Auto) 9.8, Eosinophils (%) (Auto) 0.0, Basophils (%) (Auto) 1.4, Sodium Level 135L, Potassium Level 4.0, Chloride Level 99, Carbon Dioxide Level 22, Anion Gap 14, Blood Urea Nitrogen 15, Creatinine 1.4H, Estimat Glomerular Filtration Rate > 60, Glucose Level 139H, Calcium Level 8.8 Current Medications Medications (Trade) Dose Ordered Sig/Lino Route PRN Reason Start Time Stop Time Status Last Admin Dose Admin Acetaminophen (Tylenol) 650 mg Q6HR PRN ORAL pain 12/13/19 18:15 01/12/20 18:14 12/13/19 18:46 Azithromycin 500 mg/Dextrose 275 ml @ 275 mls/hr Q24HRS IV 12/13/19 19:30 12/19/19 20:29 12/13/19 19:30 Dextrose/Sodium Chloride 1,000 ml @ 50 mls/hr Q20H IV 12/13/19 18:15 01/12/20 18:14 12/13/19 22:54 Guaifenesin/ Dextromethorphan (Robitussin DM Syrup) 10 ml Q6HR PRN ORAL For Cough 12/14/19 00:15 03/13/20 00:14 12/14/19 00:38 Heparin Sodium (Porcine) (Heparin 5000 units/ml) 5,000 units Q12HR SUBQ 12/13/19 21:00 01/27/20 20:59 12/14/19 10:00 Hydromorphone HCl (Dilaudid) 0.5 mg Q3HR PRN IVP For Pain 12/14/19 00:15 12/21/19 00:14 12/14/19 09:58 Methylprednisolone Sodium Succinate (Solu-MEDROL) 30 mg EVERY 12 HOURS IVP 12/13/19 21:00 03/12/20 20:59 12/14/19 09:57 Ondansetron HCl (Zofran) 4 mg Q6HR PRN IVP nausea, vomiting 12/13/19 18:15 01/12/20 18:14 12/14/19 00:39 Tramaine Ballesteros MD Dec 14, 2019 10:18
[2019-12-14 12:00] VITALS: BP 139/90
[2019-12-14] MEDS: D5 1/2NS 1,000 ML IV SCH ×2 (14:26→23:39)
[2019-12-14 16:00] VITALS: BP 137/89
[2019-12-14 20:00] VITALS: BP 154/95
[2019-12-14] MEDS: Azithromycin 500mg in D5W 275 ML IV SCH (20:23)
[2019-12-15] VITALS: BP 142/84
[2019-12-15 04:00] VITALS: BP 162/94
[2019-12-15] MEDS: Levofloxacin 500mg tab ORAL SCH ×2 (09:00→09:16)
[2019-12-15] MEDS: Solu-MEDROL 40mg Inj IVP SCH (09:16)
[2019-12-15] MEDS: Heparin 5000 units/ml inj SUBQ SCH ×2 (09:19→20:22)
--- NOTE | 2019-12-15 11:15 | Pulmonology Progress Note ---
Assessment/Plan Assessment/Plan Impression: Pneumonia R/O COVID 19 is negative Asthma Obesity Shortness of breath Chronic edema Lymphopenia Hyponatremia leukocytosis Plan - IV Antibiotics - Bronchodilators - MDI - Taper Solumedrol - Monitor labs - PPX - dc azithrom and add levaquin - ID evaluation and clearance impression, plan, and exam edited and reviewed in detail care discussed with RN Subjective Allergies: Coded Allergies: PENICILLINS (Verified Allergy, Intermediate, VOMITING/RASH, 10/19/12) Subjective abdominal pain and vomiting all night due to zithromax care noted has some pain Objective Last 24 Hour Vital Signs Date Time Temp Pulse Resp B/P (MAP) Pulse Ox O2 Delivery O2 Flow Rate FiO2 12/15/19 04:00 97.9 85 24 162/94 (116) 95 12/15/19 03:43 87 12/15/19 00:00 97.7 81 22 142/84 (103) 95 12/14/19 23:35 97 12/14/19 21:00 Nasal Cannula 2.0 12/14/19 20:00 86 12/14/19 20:00 97.9 78 19 154/95 (114) 94 12/14/19 16:00 97.5 85 19 137/89 (105) 12/14/19 16:00 82 12/14/19 12:00 82 12/14/19 12:00 97.9 83 18 139/90 (106) Intake and Output 12/14/19 12/15/19 19:00 07:00 Intake Total 450 ml 800 ml Output Total 500 ml Balance 450 ml 300 ml Intake Oral 400 ml 300 ml IV Total 50 ml 500 ml Output Urine Total 500 ml # Voids 2 Objective WDWN NAD reduced breath sounds bilaterally without rhonchi or wheeze [id number] without MRG NABS nontender no HSM no CCE nonfocal Microbiology Date/Time Source Procedure Growth Status 12/12/19 17:15 Nasal Nares - Final Complete 12/12/19 17:15 Nasal Nares - Final Complete 12/12/19 17:15 Nasopharynx Coronavirus COVID-19 PCR (VIC) - Final Complete Current Medications Medications (Trade) Dose Ordered Sig/Lino Route PRN Reason Start Time Stop Time Status Last Admin Dose Admin Acetaminophen (Tylenol) 650 mg Q6HR PRN ORAL pain 12/13/19 18:15 01/12/20 18:14 12/13/19 18:46 Dextrose/Sodium Chloride 1,000 ml @ 50 mls/hr Q20H IV 12/13/19 18:15 01/12/20 18:14 12/14/19 23:39 Guaifenesin/ Dextromethorphan (Robitussin DM Syrup) 10 ml Q6HR PRN ORAL For Cough 12/14/19 00:15 03/13/20 00:14 12/14/19 23:24 Heparin Sodium (Porcine) (Heparin 5000 units/ml) 5,000 units Q12HR SUBQ 12/13/19 21:00 01/27/20 20:59 12/15/19 09:19 Hydromorphone HCl (Dilaudid) 0.5 mg Q3HR PRN IVP For Pain 12/14/19 00:15 12/21/19 00:14 12/14/19 18:12 Levofloxacin (Levaquin) 500 mg DAILY ORAL 12/15/19 09:00 12/21/19 09:01 Methylprednisolone Sodium Succinate (Solu-MEDROL) 30 mg EVERY 12 HOURS IVP 12/13/19 21:00 03/12/20 20:59 12/15/19 09:16 Ondansetron HCl (Zofran) 4 mg Q6HR PRN IVP nausea, vomiting 12/13/19 18:15 01/12/20 18:14 12/15/19 01:06 Tramaine Ballesteros MD Dec 15, 2019 11:15
[2019-12-15 11:28] VITALS: BP 144/86
[2019-12-15] MEDS ORDERED: Guaifenesin/DM 10ml syrup ORAL PRN (15:49)
[2019-12-15 16:00] VITALS: BP 144/88
[2019-12-15] MEDS: D5 1/2NS 1,000 ML IV SCH (16:28)
--- NOTE | 2019-12-15 16:30 | Consultation ---
DATE OF CONSULTATION: 12/15/2019 INFECTIOUS DISEASES CONSULTATION CONSULTING PHYSICIAN: Anastasiia Sharma MD REFERRING PHYSICIAN: Tramaine Ballesteros MD REASON FOR CONSULTATION: Pneumonia. HISTORY OF PRESENT ILLNESS: This is a 54-year-old gentleman with history of asthma, obesity, edema who came in with cough and shortness of breath. He also had some nausea and vomiting. There was a concern for pneumonia. He did complete a course of azithromycin. There was a concern for COVID pneumonia and an Infectious Diseases consultation has been obtained for antibiotics. PAST MEDICAL HISTORY: 1. History of obesity. 2. History of asthma. 3. History of appendectomy. SOCIAL HISTORY: He does not smoke. He drinks alcohol occasionally. No history of drug use. FAMILY HISTORY: His mother had myocardial infarction. REVIEW OF SYSTEMS: RESPIRATORY: No fever or chills. He has cough and shortness of breath. No chest pain. CARDIAC: No chest pain. No palpitations. No dizziness. No syncope. GASTROINTESTINAL: He had nausea and vomiting. No abdominal pain or diarrhea. MEDICATIONS: As an inpatient, he is on levofloxacin, Robitussin, Dilaudid, subcutaneous heparin, Zofran, Tylenol. ALLERGIES: To penicillin noted, it produces stomach upset. PHYSICAL EXAMINATION: VITAL SIGNS: Temperature of 98.1, T-max of 100.5, pulse of 79, respiratory rate 22, blood pressure 144/86, O2 saturation of 95%. HEENT: Pupils equally reactive to light and accommodation. Mouth appears clean without thrush. NECK: Supple. No adenopathy. No JVD. CARDIOVASCULAR: Regular rate and rhythm. No murmurs. LUNGS: Clear to auscultation bilaterally. No crackles. No wheezes. ABDOMEN: Soft and nontender. No organomegaly. EXTREMITIES: No cyanosis, no clubbing. Edema noted bilaterally. LABORATORY AND DIAGNOSTIC DATA: White count of 18, hemoglobin 12.5, hematocrit 38.9, MCV 88, platelet count 241, with neutrophils of 81%. Sodium 135, potassium 4, chloride 99, bicarb 22, BUN 15, creatinine 1.4, glucose 139, calcium 8.8. Total bilirubin 0.9, AST 53, ALT 70, alkaline phosphatase 82. Troponin 0. Beta natriuretic peptide 38. Total protein 8.6, albumin 3.1. Lipase of 88. COVID-19 testing is negative. Nasal swab was negative for influenza A and B. Chest x-ray is showing mild subsegmental atelectasis versus infiltrate in the left lung base, mild pulmonary congestion noted. ASSESSMENT: This is a 54-year-old gentleman with history of asthma as well as obesity who comes in with cough, shortness of breath, as well as nausea and vomiting and is found to have. 1. Pneumonia, COVID-19 testing was negative. 2. History of asthma. 3. Obesity. 4. Leukocytosis could be secondary to steroids. PLAN: 1. Continue Levaquin. 2. We will order sputum for Gram stain and culture. 3. We will follow up cultures and adjust antibiotics accordingly. I would like to thank, Dr. Ballesteros for this consultation. Anastasiia Sharma M.D. DR: Twan JOB#: [id number] CC: Tramaine Ballesteros M.D.; Fax#: [phone]
[2019-12-15] MEDS ORDERED: ALBUTEROL 90 MCG INH PRN (19:00)
[2019-12-15 20:00] VITALS: BP 151/83
[2019-12-16] VITALS: BP 129/86
[2019-12-16 04:00] VITALS: BP 126/78
[2019-12-16 06:45] LABS: BASOPHILS % (AUTO) 0.5 % (0.0-2.0); HEMATOCRIT 39.7 % (42.0-52.0); HEMOGLOBIN 13.2 G/DL (14.2-18.0); LYMPHOCYTES % (AUTO) 7.9 % (20.0-45.0); MEAN CORPUSCULAR VOLUME 86 FL (80-99); MONOCYTES % (AUTO) 8.3 % (1.0-10.0); NEUTROPHILS % (AUTO) 83.3 % (45.0-75.0); PLATELET COUNT 267 K/UL (150-450); RED BLOOD COUNT 4.63 M/UL (4.70-6.10); RED CELL DISTRIBUTION WIDTH 12.4 % (11.6-14.8); WHITE BLOOD COUNT 16.4 K/UL (4.8-10.8)
[2019-12-16 07:22] LABS: ANION GAP 5 mmol/L (5-15); BLOOD UREA NITROGEN 17 mg/dL (7-18); CALCIUM 8.7 MG/DL (8.5-10.1); CARBON DIOXIDE 33 MMOL/L (21-32); CHLORIDE 104 MMOL/L (98-107); CREATININE 1.1 MG/DL (0.55-1.30); POTASSIUM 3.6 MMOL/L (3.5-5.1); SODIUM 142 MMOL/L (136-145)
[2019-12-16 08:00] VITALS: BP 145/91
[2019-12-16] MEDS: Heparin 5000 units/ml inj SUBQ SCH ×2 (08:55→21:45)
[2019-12-16] MEDS ORDERED: Levofloxacin 500mg tab ORAL SCH (09:00)
--- NOTE | 2019-12-16 10:01 | Pulmonology Progress Note ---
Assessment/Plan Assessment/Plan Impression: Pneumonia R/O COVID 19 is negative Asthma Obesity Shortness of breath Chronic edema Lymphopenia Hyponatremia leukocytosis Plan - oral antibiotics per ID -GI follow up for vomiting - pain control - await clearance and dc soon impression, plan, and exam edited and reviewed in detail care discussed with RN Subjective Allergies: Coded Allergies: PENICILLINS (Verified Allergy, Intermediate, VOMITING/RASH, 10/19/12) Subjective nausea care noted + pain Objective Last 24 Hour Vital Signs Date Time Temp Pulse Resp B/P (MAP) Pulse Ox O2 Delivery O2 Flow Rate FiO2 12/16/19 04:00 98.0 83 20 126/78 (94) 94 12/16/19 00:00 98.1 92 20 129/86 (100) 98 12/15/19 21:00 Nasal Cannula 2.0 12/15/19 20:00 99.0 95 22 151/83 (105) 90 12/15/19 16:00 98.9 88 22 144/88 (106) 97 12/15/19 11:41 82 12/15/19 11:28 98.1 79 22 144/86 (105) 95 Intake and Output 12/15/19 12/16/19 19:00 07:00 Intake Total 100 ml 450 ml Output Total 1050 ml 600 ml Balance -950 ml -150 ml IV Total 100 ml 450 ml Output Urine Total 800 ml 600 ml Emesis 250 ml Objective WDWN NAD reduced breath sounds bilaterally without rhonchi or wheeze [id number] without MRG NABS nontender no HSM no CCE nonfocal Laboratory Tests 12/16/19 05:07: White Blood Count 16.4H, Red Blood Count 4.63L, Hemoglobin 13.2L, Hematocrit 39.7L, Mean Corpuscular Volume 86, Mean Corpuscular Hemoglobin 28.5, Mean Corpuscular Hemoglobin Concent 33.2, Red Cell Distribution Width 12.4, Platelet Count 267, Mean Platelet Volume 5.3L, Neutrophils (%) (Auto) 83.3H, Lymphocytes (%) (Auto) 7.9L, Monocytes (%) (Auto) 8.3, Eosinophils (%) (Auto) 0.0, Basophils (%) (Auto) 0.5, Sodium Level 142, Potassium Level 3.6, Chloride Level 104, Carbon Dioxide Level 33H, Anion Gap 5, Blood Urea Nitrogen 17, Creatinine 1.1, Estimat Glomerular Filtration Rate > 60, Glucose Level 115H, Calcium Level 8.7 Current Medications Medications (Trade) Dose Ordered Sig/Lino Route PRN Reason Start Time Stop Time Status Last Admin Dose Admin Acetaminophen (Tylenol) 650 mg Q6H PRN ORAL pain 12/15/19 15:49 01/14/20 15:48 Dextrose/Sodium Chloride 1,000 ml @ 50 mls/hr Q20H IV 12/15/19 15:49 01/14/20 15:48 12/15/19 16:28 Guaifenesin/ Dextromethorphan (Robitussin DM Syrup) 10 ml Q6H PRN ORAL For Cough 12/15/19 15:49 03/14/20 15:48 Heparin Sodium (Porcine) (Heparin 5000 units/ml) 5,000 units Q12HR SUBQ 12/15/19 21:00 01/27/20 20:59 12/16/19 08:55 Hydromorphone HCl (Dilaudid) 0.5 mg Q3H PRN IVP For Pain 12/15/19 15:50 12/22/19 15:49 Levofloxacin (Levaquin) 500 mg DAILY ORAL 12/16/19 09:00 12/22/19 09:01 Ondansetron HCl (Zofran) 4 mg Q6H PRN IVP nausea, vomiting 12/15/19 18:00 01/14/20 17:59 Patient Own Medication (Patient's Own Inhaler) 2 puff Q4H PRN INH Shortness of Breath 12/15/19 19:00 03/14/20 18:59 Prochlorperazine (Compazine) 10 mg Q4H PRN IM Nausea & Vomiting 12/15/19 15:50 01/14/20 15:49 12/16/19 05:35 Tramaine Ballesteros MD Dec 16, 2019 10:01
--- NOTE | 2019-12-16 11:31 | Infectious Diseases Prog Note ---
Assessment/Plan Assessment/Plan antibiotics : levoquin A 1. pneumonia COVID 19 test negative 4.4.20 2. asthma 3. obesity 4. leucocytosis improving P 1. continue levoquin po 5 more days 2. will follow up cultures Subjective Constitutional: Denies: fever, chills Respiratory: Reports: shortness of breath, dry cough - decreased Gastrointestinal/Abdominal: Reports: nausea, vomiting Musculoskeletal: Reports: pain Allergies: Coded Allergies: PENICILLINS (Verified Allergy, Intermediate, VOMITING/RASH, 10/19/12) Objective Vital Signs Last 24 Hour Vital Signs Date Time Temp Pulse Resp B/P (MAP) Pulse Ox O2 Delivery O2 Flow Rate FiO2 12/16/19 08:02 85 20 96 2.0 28 12/16/19 08:00 97.5 88 20 145/91 (109) 96 12/16/19 04:00 98.0 83 20 126/78 (94) 94 12/16/19 00:00 98.1 92 20 129/86 (100) 98 12/15/19 21:00 Nasal Cannula 2.0 12/15/19 20:00 99.0 95 22 151/83 (105) 90 12/15/19 16:00 98.9 88 22 144/88 (106) 97 12/15/19 11:41 82 Height (Feet): 6 Height (Inches): 1.00 Weight (Pounds): 473 Respiratory/Chest: lungs clear Cardiovascular: normal rate, regular rhythm, no gallop/murmur Abdomen: soft, non tender Extremities: no edema Laboratory Tests Test 12/16/19 05:07 White Blood Count 16.4 K/UL (4.8-10.8) H Red Blood Count 4.63 M/UL (4.70-6.10) L Hemoglobin 13.2 G/DL (14.2-18.0) L Hematocrit 39.7 % (42.0-52.0) L Mean Corpuscular Volume 86 FL (80-99) Mean Corpuscular Hemoglobin 28.5 PG (27.0-31.0) Mean Corpuscular Hemoglobin Concent 33.2 G/DL (32.0-36.0) Red Cell Distribution Width 12.4 % (11.6-14.8) Platelet Count 267 K/UL (150-450) Mean Platelet Volume 5.3 FL (6.5-10.1) L Neutrophils (%) (Auto) 83.3 % (45.0-75.0) H Lymphocytes (%) (Auto) 7.9 % (20.0-45.0) L Monocytes (%) (Auto) 8.3 % (1.0-10.0) Eosinophils (%) (Auto) 0.0 % (0.0-3.0) Basophils (%) (Auto) 0.5 % (0.0-2.0) Sodium Level 142 MMOL/L (136-145) Potassium Level 3.6 MMOL/L (3.5-5.1) Chloride Level 104 MMOL/L (98-107) Carbon Dioxide Level 33 MMOL/L (21-32) H Anion Gap 5 mmol/L (5-15) Blood Urea Nitrogen 17 mg/dL (7-18) Creatinine 1.1 MG/DL (0.55-1.30) Estimat Glomerular Filtration Rate > 60 mL/min (>60) Glucose Level 115 MG/DL (74-106) H Calcium Level 8.7 MG/DL (8.5-10.1) Current Medications Medications (Trade) Dose Ordered Sig/Lino Route PRN Reason Start Time Stop Time Status Last Admin Dose Admin Acetaminophen (Tylenol) 650 mg Q6H PRN ORAL pain 12/15/19 15:49 01/14/20 15:48 Dextrose/Sodium Chloride 1,000 ml @ 50 mls/hr Q20H IV 12/15/19 15:49 01/14/20 15:48 12/15/19 16:28 Guaifenesin/ Dextromethorphan (Robitussin DM Syrup) 10 ml Q6H PRN ORAL For Cough 12/15/19 15:49 03/14/20 15:48 Heparin Sodium (Porcine) (Heparin 5000 units/ml) 5,000 units Q12HR SUBQ 12/15/19 21:00 01/27/20 20:59 12/16/19 08:55 Hydromorphone HCl (Dilaudid) 0.5 mg Q3H PRN IVP For Pain 12/15/19 15:50 12/22/19 15:49 Levofloxacin (Levaquin) 500 mg DAILY ORAL 12/16/19 09:00 12/22/19 09:01 Ondansetron HCl (Zofran) 4 mg Q6H PRN IVP nausea, vomiting 12/15/19 18:00 01/14/20 17:59 Patient Own Medication (Patient's Own Inhaler) 2 puff Q4H PRN INH Shortness of Breath 12/15/19 19:00 03/14/20 18:59 Prochlorperazine (Compazine) 10 mg Q4H PRN IM Nausea & Vomiting 12/15/19 15:50 01/14/20 15:49 12/16/19 05:35 Anastasiia Sharma MD Dec 16, 2019 11:31
[2019-12-16] MEDS: D5 1/2NS 1,000 ML IV SCH (11:49)
[2019-12-16 12:00] VITALS: BP 140/90
[2019-12-16 16:00] VITALS: BP 144/66
[2019-12-16] MEDS: Hydromorphone 0.5mg/0.5ml inj IVP PRN ×2 (16:48→21:52)
[2019-12-16] MEDS ORDERED: Zolpidem 5mg tab ORAL PRN ×2 (17:45→21:00)
[2019-12-16 20:00] VITALS: BP 144/81
--- NOTE | 2019-12-16 22:11 | General Progress Note ---
Assessment/Plan Assessment/Plan: Consult note dictated Thank you Narciso Mancini MD Subjective Allergies: Coded Allergies: PENICILLINS (Verified Allergy, Intermediate, VOMITING/RASH, 10/19/12) Objective Last 24 Hour Vital Signs Date Time Temp Pulse Resp B/P (MAP) Pulse Ox O2 Delivery O2 Flow Rate FiO2 12/16/19 20:00 98.2 90 20 144/81 (102) 98 12/16/19 16:00 97.9 109 20 144/66 (92) 100 12/16/19 12:00 98.1 91 20 140/90 (107) 94 12/16/19 09:00 Nasal Cannula 2.0 12/16/19 08:02 85 20 96 2.0 28 12/16/19 08:00 97.5 88 20 145/91 (109) 96 12/16/19 04:00 98.0 83 20 126/78 (94) 94 12/16/19 00:00 98.1 92 20 129/86 (100) 98 Intake and Output 12/15/19 12/16/19 19:00 07:00 Intake Total 100 ml 450 ml Output Total 1050 ml 600 ml Balance -950 ml -150 ml IV Total 100 ml 450 ml Output Urine Total 800 ml 600 ml Emesis 250 ml Laboratory Tests 12/16/19 05:07: White Blood Count 16.4H, Red Blood Count 4.63L, Hemoglobin 13.2L, Hematocrit 39.7L, Mean Corpuscular Volume 86, Mean Corpuscular Hemoglobin 28.5, Mean Corpuscular Hemoglobin Concent 33.2, Red Cell Distribution Width 12.4, Platelet Count 267, Mean Platelet Volume 5.3L, Neutrophils (%) (Auto) 83.3H, Lymphocytes (%) (Auto) 7.9L, Monocytes (%) (Auto) 8.3, Eosinophils (%) (Auto) 0.0, Basophils (%) (Auto) 0.5, Sodium Level 142, Potassium Level 3.6, Chloride Level 104, Carbon Dioxide Level 33H, Anion Gap 5, Blood Urea Nitrogen 17, Creatinine 1.1, Estimat Glomerular Filtration Rate > 60, Glucose Level 115H, Calcium Level 8.7 Height (Feet): 6 Height (Inches): 1.00 Weight (Pounds): 473 Narciso Mancini MD Dec 16, 2019 22:11
--- NOTE | 2019-12-16 22:18 | General Progress Note ---
Assessment/Plan Assessment/Plan: Assessment - LUQ abd pain - N/V - cough, SOB - Venous stasis edema - leukocytosis Recommendations - repeat COVID testing - Check CT Abd / Pelvis - Check amylast - PPI - clears - abx per ID Subjective Allergies: Coded Allergies: PENICILLINS (Verified Allergy, Intermediate, VOMITING/RASH, 10/19/12) Objective Last 24 Hour Vital Signs Date Time Temp Pulse Resp B/P (MAP) Pulse Ox O2 Delivery O2 Flow Rate FiO2 12/16/19 20:00 98.2 90 20 144/81 (102) 98 12/16/19 16:00 97.9 109 20 144/66 (92) 100 12/16/19 12:00 98.1 91 20 140/90 (107) 94 12/16/19 09:00 Nasal Cannula 2.0 12/16/19 08:02 85 20 96 2.0 28 12/16/19 08:00 97.5 88 20 145/91 (109) 96 12/16/19 04:00 98.0 83 20 126/78 (94) 94 12/16/19 00:00 98.1 92 20 129/86 (100) 98 Intake and Output 12/15/19 12/16/19 19:00 07:00 Intake Total 100 ml 450 ml Output Total 1050 ml 600 ml Balance -950 ml -150 ml IV Total 100 ml 450 ml Output Urine Total 800 ml 600 ml Emesis 250 ml Laboratory Tests 12/16/19 05:07: White Blood Count 16.4H, Red Blood Count 4.63L, Hemoglobin 13.2L, Hematocrit 39.7L, Mean Corpuscular Volume 86, Mean Corpuscular Hemoglobin 28.5, Mean Corpuscular Hemoglobin Concent 33.2, Red Cell Distribution Width 12.4, Platelet Count 267, Mean Platelet Volume 5.3L, Neutrophils (%) (Auto) 83.3H, Lymphocytes (%) (Auto) 7.9L, Monocytes (%) (Auto) 8.3, Eosinophils (%) (Auto) 0.0, Basophils (%) (Auto) 0.5, Sodium Level 142, Potassium Level 3.6, Chloride Level 104, Carbon Dioxide Level 33H, Anion Gap 5, Blood Urea Nitrogen 17, Creatinine 1.1, Estimat Glomerular Filtration Rate > 60, Glucose Level 115H, Calcium Level 8.7 Height (Feet): 6 Height (Inches): 1.00 Weight (Pounds): 473 Narciso Mancini MD Dec 16, 2019 22:18
[2019-12-16] MEDS: Pantoprazole Inj IVP SCH (23:10)
[2019-12-17] VITALS: BP 128/68
[2019-12-17] MEDS: Hydromorphone 0.5mg/0.5ml inj IVP PRN ×4 (01:35→18:43)
[2019-12-17 04:00] VITALS: BP 116/74
--- NOTE | 2019-12-17 04:44 | Consultation ---
DATE OF CONSULTATION: CHIEF COMPLAINT: I was asked to see this patient by Dr. Tramaine Ballesteros for evaluation of abdominal pain and vomiting. HISTORY OF PRESENT ILLNESS: The patient is a 54-year-old man with a longstanding history of asthma and morbid obesity and venous stasis edema, who comes into the hospital due to shortness of breath, cough, and nausea and vomiting. The patient also had some diarrhea before admission, but this resolved. He has had cough for a few weeks and has had some shortness of breath. His vomiting brought him to the hospital and he comlained of left sided pain. He was apparently seen in the emergency room a few times and given antibiotics and now admitted. He had one COVID test, which was negative. The patient had an endoscopy and colonoscopy about 2 years ago. He cannot recall being told of any abnormalities there. His last bowel movement was about 2 days ago. He states he is unable to eat any of his foods. PAST MEDICAL HISTORY: Asthma, morbid obesity, lower extremity venous stasis edema, status post appendectomy. ALLERGIES: Penicillin. FAMILY HISTORY: Noncontributory. SOCIAL HISTORY: The patient does not have any history of smoking. REVIEW OF SYSTEMS: Otherwise negative. PHYSICAL EXAMINATION: GENERAL: Obese man seen in his room. HEENT: Normocephalic and atraumatic. Sclerae anicteric. Oropharynx clear. NECK: Supple. CHEST: Clear to auscultation. CARDIOVASCULAR: Revealed a regular rate. ABDOMEN: Obese with mild left upper quadrant tenderness to palpation without guarding or rebound. EXTREMITIES: Revealed venous stasis dermatitis and edema. LABORATORY DATA: Noted. ASSESSMENT: This patient presents with pulmonary syndrome and gastrointestinal symptoms. The condition is suspicious for coronavirus infection; therefore, a repeat second test should be done to rule out this entity. From a gastrointestinal standpoint, he should be placed on proton pump inhibitor in case his symptoms are from peptic ulcer disease. In addition, CT scan of the abdomen and pelvis can be done to evaluate the intra-abdominal areas for any other pathology such as splenic injury or infarction. The patient can be given a clear liquid diet as tolerated until the workup is completed. I would also check his laboratory parameters including lipase and the liver tests. RECOMMENDATIONS: Per above discussion and per orders written in the chart. Thank you for asking me to participate in the care of this patient. Narciso Mancini M.D. DR: Nicole JOB#: [id number] CC: ANGELITO
[2019-12-17] MEDS: D5 1/2NS 1,000 ML IV SCH (05:04)
[2019-12-17 06:57] LABS: ALANINE AMINOTRANSFERASE 120 U/L (12-78); ALBUMIN 2.4 G/DL (3.4-5.0); ALBUMIN/GLOBULIN RATIO 0.5 (1.0-2.7); ALKALINE PHOSPHATASE 90 U/L (46-116); ANION GAP 7 mmol/L (5-15); ASPARTATE AMINO TRANSFERASE 45 U/L (15-37); BILIRUBIN,TOTAL 0.5 MG/DL (0.2-1.0); BLOOD UREA NITROGEN 18 mg/dL (7-18); CALCIUM 8.6 MG/DL (8.5-10.1); CARBON DIOXIDE 33 MMOL/L (21-32); CHLORIDE 104 MMOL/L (98-107); CREATININE 1.1 MG/DL (0.55-1.30); POTASSIUM 3.6 MMOL/L (3.5-5.1); SODIUM 144 MMOL/L (136-145)
[2019-12-17 06:59] LABS: BASOPHILS % (AUTO) 1.1 % (0.0-2.0); EOSINOPHILS % (AUTO) 0.1 % (0.0-3.0); HEMATOCRIT 40.5 % (42.0-52.0); HEMOGLOBIN 13.1 G/DL (14.2-18.0); LYMPHOCYTES % (AUTO) 8.2 % (20.0-45.0); MEAN CORPUSCULAR VOLUME 87 FL (80-99); MONOCYTES % (AUTO) 9.5 % (1.0-10.0); NEUTROPHILS % (AUTO) 81.2 % (45.0-75.0); PLATELET COUNT 210 K/UL (150-450); RED BLOOD COUNT 4.67 M/UL (4.70-6.10); RED CELL DISTRIBUTION WIDTH 12.8 % (11.6-14.8); WHITE BLOOD COUNT 12.9 K/UL (4.8-10.8)
[2019-12-17 08:00] VITALS: BP 182/90
[2019-12-17] MEDS: Pantoprazole Inj IVP SCH ×2 (09:23→20:42)
[2019-12-17] MEDS: Heparin 5000 units/ml inj SUBQ SCH ×2 (09:24→20:43)
--- NOTE | 2019-12-17 11:26 | Pulmonology Progress Note ---
Assessment/Plan Assessment/Plan Impression: Pneumonia R/O COVID 19 is negative Asthma Obesity Shortness of breath Chronic edema Lymphopenia Hyponatremia leukocytosis Plan CT abdomen gi clearance back on isolation awaiting 2nd COVID test patient overall improved impression, plan, and exam edited and reviewed in detail care discussed with RN Subjective Allergies: Coded Allergies: PENICILLINS (Verified Allergy, Intermediate, VOMITING/RASH, 10/19/12) Subjective nausea better slept better care noted + pain Objective Last 24 Hour Vital Signs Date Time Temp Pulse Resp B/P (MAP) Pulse Ox O2 Delivery O2 Flow Rate FiO2 12/17/19 10:25 92 182/90 12/17/19 08:00 97.3 92 21 182/90 (120) 98 12/17/19 04:00 98.1 89 22 116/74 (88) 97 12/17/19 00:00 97.9 99 22 128/68 (88) 97 12/16/19 21:00 Nasal Cannula 2.0 12/16/19 20:05 91 20 98 Nasal Cannula 2.0 28 12/16/19 20:00 98.2 90 20 144/81 (102) 98 12/16/19 16:00 97.9 109 20 144/66 (92) 100 12/16/19 12:00 98.1 91 20 140/90 (107) 94 Intake and Output 12/16/19 12/17/19 19:00 07:00 Intake Total 680 ml 1700 ml Output Total 950 ml 650 ml Balance -270 ml 1050 ml Intake Oral 480 ml 1400 ml IV Total 200 ml 300 ml Output Urine Total 900 ml 650 ml Emesis 50 ml # Voids 2 Objective WDWN NAD reduced breath sounds bilaterally without rhonchi or wheeze [id number] without MRG NABS nontender no HSM no CC brawny and chronic lymphedema nonfocal Laboratory Tests 12/17/19 06:30: White Blood Count 12.9H, Red Blood Count 4.67L, Hemoglobin 13.1L, Hematocrit 40.5L, Mean Corpuscular Volume 87, Mean Corpuscular Hemoglobin 28.0, Mean Corpuscular Hemoglobin Concent 32.4, Red Cell Distribution Width 12.8, Platelet Count 210, Mean Platelet Volume 5.8L, Neutrophils (%) (Auto) 81.2H, Lymphocytes (%) (Auto) 8.2L, Monocytes (%) (Auto) 9.5, Eosinophils (%) (Auto) 0.1, Basophils (%) (Auto) 1.1, Sodium Level 144, Potassium Level 3.6, Chloride Level 104, Carbon Dioxide Level 33H, Anion Gap 7, Blood Urea Nitrogen 18, Creatinine 1.1, Estimat Glomerular Filtration Rate > 60, Glucose Level 127H, Calcium Level 8.6, Total Bilirubin 0.5, Aspartate Amino Transf (AST/SGOT) 45H, Alanine Aminotransferase (ALT/SGPT) 120H, Alkaline Phosphatase 90, Total Protein 7.4, Albumin 2.4L, Globulin 5.0, Albumin/Globulin Ratio 0.5L, Lipase 99 Current Medications Medications (Trade) Dose Ordered Sig/Lino Route PRN Reason Start Time Stop Time Status Last Admin Dose Admin Acetaminophen (Tylenol) 650 mg Q6H PRN ORAL pain 12/15/19 15:49 01/14/20 15:48 Amlodipine Besylate (Norvasc) 5 mg DAILY ORAL 12/17/19 09:30 01/16/20 09:29 12/17/19 10:25 Barium Sulfate (Readi-Cat 2) 450 ml NOW PRN ORAL Radiology Procedure 12/16/19 22:30 12/18/19 22:29 Dextrose/Sodium Chloride 1,000 ml @ 50 mls/hr Q20H IV 12/15/19 15:49 01/14/20 15:48 12/17/19 05:04 Guaifenesin/ Dextromethorphan (Robitussin DM Syrup) 10 ml Q6H PRN ORAL For Cough 12/15/19 15:49 03/14/20 15:48 Heparin Sodium (Porcine) (Heparin 5000 units/ml) 5,000 units Q12HR SUBQ 12/15/19 21:00 01/27/20 20:59 12/17/19 09:24 Hydromorphone HCl (Dilaudid) 0.5 mg Q3H PRN IVP For Pain 12/15/19 15:50 12/22/19 15:49 12/17/19 05:05 Levofloxacin 100 ml @ 100 mls/hr Q24H IVPB 12/16/19 16:00 12/23/19 15:59 12/16/19 16:00 Ondansetron HCl (Zofran) 4 mg Q6H PRN IVP nausea, vomiting 12/15/19 18:00 01/14/20 17:59 Pantoprazole (Protonix) 40 mg EVERY 12 HOURS IVP 12/16/19 23:00 01/15/20 22:59 12/17/19 09:23 Patient Own Medication (Patient's Own Inhaler) 2 puff Q4H PRN INH Shortness of Breath 12/15/19 19:00 03/14/20 18:59 Prochlorperazine (Compazine) 10 mg Q4H PRN IM Nausea & Vomiting 12/15/19 15:50 01/14/20 15:49 12/16/19 14:20 Zolpidem Tartrate (Ambien) 5 mg HSPRN PRN ORAL Insomnia 12/16/19 21:00 12/23/19 20:59 Tramaine Ballesteros MD Dec 17, 2019 11:26
[2019-12-17 12:00] VITALS: BP 139/86
--- NOTE | 2019-12-17 12:56 | Infectious Diseases Prog Note ---
Assessment/Plan Assessment/Plan A 1. pneumonia COVID19 test negative 4.12.27 2. asthma 3. Morbid obesity 4. leucocytosis improving P 1. continue Levaquin PO 4 more days 2. will follow up cultures Subjective ROS Limited/Unobtainable: No Constitutional: Reports: no symptoms Respiratory: Reports: productive cough Cardiovascular: Reports: no symptoms Gastrointestinal/Abdominal: Reports: nausea Genitourinary: Reports: no symptoms Allergies: Coded Allergies: PENICILLINS (Verified Allergy, Intermediate, VOMITING/RASH, 10/19/12) Objective Vital Signs Last 24 Hour Vital Signs Date Time Temp Pulse Resp B/P (MAP) Pulse Ox O2 Delivery O2 Flow Rate FiO2 12/17/19 12:00 97.8 100 20 139/86 (103) 94 12/17/19 10:25 92 182/90 12/17/19 09:00 Nasal Cannula 2.0 12/17/19 08:00 97.3 92 21 182/90 (120) 98 12/17/19 04:00 98.1 89 22 116/74 (88) 97 12/17/19 00:00 97.9 99 22 128/68 (88) 97 12/16/19 21:00 Nasal Cannula 2.0 12/16/19 20:05 91 20 98 Nasal Cannula 2.0 28 12/16/19 20:00 98.2 90 20 144/81 (102) 98 12/16/19 16:00 97.9 109 20 144/66 (92) 100 Height (Feet): 6 Height (Inches): 1.00 Weight (Pounds): 473 General Appearance: no acute distress HEENT: mucous membranes moist Respiratory/Chest: decreased breath sounds Cardiovascular: normal rate Abdomen: soft, non tender Extremities: other - legs edema Skin: other - chroni skin changes of legs Neurologic/Psychiatric: alert, oriented x 3, responsive Laboratory Tests Test 12/17/19 06:30 White Blood Count 12.9 K/UL (4.8-10.8) H Red Blood Count 4.67 M/UL (4.70-6.10) L Hemoglobin 13.1 G/DL (14.2-18.0) L Hematocrit 40.5 % (42.0-52.0) L Mean Corpuscular Volume 87 FL (80-99) Mean Corpuscular Hemoglobin 28.0 PG (27.0-31.0) Mean Corpuscular Hemoglobin Concent 32.4 G/DL (32.0-36.0) Red Cell Distribution Width 12.8 % (11.6-14.8) Platelet Count 210 K/UL (150-450) Mean Platelet Volume 5.8 FL (6.5-10.1) L Neutrophils (%) (Auto) 81.2 % (45.0-75.0) H Lymphocytes (%) (Auto) 8.2 % (20.0-45.0) L Monocytes (%) (Auto) 9.5 % (1.0-10.0) Eosinophils (%) (Auto) 0.1 % (0.0-3.0) Basophils (%) (Auto) 1.1 % (0.0-2.0) Sodium Level 144 MMOL/L (136-145) Potassium Level 3.6 MMOL/L (3.5-5.1) Chloride Level 104 MMOL/L (98-107) Carbon Dioxide Level 33 MMOL/L (21-32) H Anion Gap 7 mmol/L (5-15) Blood Urea Nitrogen 18 mg/dL (7-18) Creatinine 1.1 MG/DL (0.55-1.30) Estimat Glomerular Filtration Rate > 60 mL/min (>60) Glucose Level 127 MG/DL (74-106) H Calcium Level 8.6 MG/DL (8.5-10.1) Total Bilirubin 0.5 MG/DL (0.2-1.0) Aspartate Amino Transf (AST/SGOT) 45 U/L (15-37) H Alanine Aminotransferase (ALT/SGPT) 120 U/L (12-78) H Alkaline Phosphatase 90 U/L (46-116) Total Protein 7.4 G/DL (6.4-8.2) Albumin 2.4 G/DL (3.4-5.0) L Globulin 5.0 g/dL Albumin/Globulin Ratio 0.5 (1.0-2.7) L Lipase 99 U/L (73-393) Current Medications Medications (Trade) Dose Ordered Sig/Lino Route PRN Reason Start Time Stop Time Status Last Admin Dose Admin Acetaminophen (Tylenol) 650 mg Q6H PRN ORAL pain 12/15/19 15:49 01/14/20 15:48 Amlodipine Besylate (Norvasc) 5 mg DAILY ORAL 12/17/19 09:30 01/16/20 09:29 12/17/19 10:25 Barium Sulfate (Readi-Cat 2) 450 ml NOW PRN ORAL Radiology Procedure 12/16/19 22:30 12/18/19 22:29 Dextrose/Sodium Chloride 1,000 ml @ 50 mls/hr Q20H IV 12/15/19 15:49 01/14/20 15:48 12/17/19 05:04 Guaifenesin/ Dextromethorphan (Robitussin DM Syrup) 10 ml Q6H PRN ORAL For Cough 12/15/19 15:49 03/14/20 15:48 Heparin Sodium (Porcine) (Heparin 5000 units/ml) 5,000 units Q12HR SUBQ 12/15/19 21:00 01/27/20 20:59 12/17/19 09:24 Hydromorphone HCl (Dilaudid) 0.5 mg Q3H PRN IVP For Pain 12/15/19 15:50 12/22/19 15:49 12/17/19 05:05 Levofloxacin 100 ml @ 100 mls/hr Q24H IVPB 12/16/19 16:00 12/23/19 15:59 12/16/19 16:00 Ondansetron HCl (Zofran) 4 mg Q6H PRN IVP nausea, vomiting 12/15/19 18:00 01/14/20 17:59 Pantoprazole (Protonix) 40 mg EVERY 12 HOURS IVP 12/16/19 23:00 01/15/20 22:59 12/17/19 09:23 Patient Own Medication (Patient's Own Inhaler) 2 puff Q4H PRN INH Shortness of Breath 12/15/19 19:00 03/14/20 18:59 Prochlorperazine (Compazine) 10 mg Q4H PRN IM Nausea & Vomiting 12/15/19 15:50 01/14/20 15:49 12/16/19 14:20 Zolpidem Tartrate (Ambien) 5 mg HSPRN PRN ORAL Insomnia 12/16/19 21:00 12/23/19 20:59 Carmine Kraft MD Dec 17, 2019 12:56
[2019-12-17 16:00] VITALS: BP 162/73
[2019-12-17 18:55] LABS: APPEARANCE,URINE SLIGHTLY CLOUDY; BILIRUBIN, URINE NEGATIVE (NEGATIVE); GLUCOSE, URINE (UA) NEGATIVE (NEGATIVE); KETONES,URINE 1+ (NEGATIVE); LEUKOCYTE ESTERASE ,URINE 1+ (NEGATIVE); NITRITE,URINE NEGATIVE (NEGATIVE); PH,URINE 7 (4.5-8.0); PROTEIN,URINE 3+ (NEGATIVE); UROBILINOGEN,URINE 1 MG/DL (0.0-1.0)
[2019-12-17 19:08] LABS: COLOR,URINE YELLOW
[2019-12-17 20:00] VITALS: BP 113/73
--- NOTE | 2019-12-17 22:01 | General Progress Note ---
Assessment/Plan Assessment/Plan: Assessment - N/V - LUQ pain - obesity - venous stasis recommendations - Await CT scan - continue PPI - follow labs Subjective Allergies: Coded Allergies: PENICILLINS (Verified Allergy, Intermediate, VOMITING/RASH, 10/19/12) Subjective Better today COVID negative x 2 abd pain better no vomiting Objective Last 24 Hour Vital Signs Date Time Temp Pulse Resp B/P (MAP) Pulse Ox O2 Delivery O2 Flow Rate FiO2 12/17/19 19:13 97.6 12/17/19 18:12 113 162/73 12/17/19 16:00 97.6 113 21 162/73 (102) 97 12/17/19 15:03 97.8 12/17/19 12:00 97.8 100 20 139/86 (103) 94 12/17/19 10:25 92 182/90 12/17/19 09:00 Nasal Cannula 2.0 12/17/19 08:00 97.3 92 21 182/90 (120) 98 12/17/19 04:00 98.1 89 22 116/74 (88) 97 12/17/19 00:00 97.9 99 22 128/68 (88) 97 Intake and Output 12/16/19 12/17/19 19:00 07:00 Intake Total 680 ml 1750 ml Output Total 950 ml 650 ml Balance -270 ml 1100 ml Intake Oral 480 ml 1400 ml IV Total 200 ml 350 ml Output Urine Total 900 ml 650 ml Emesis 50 ml # Voids 2 Laboratory Tests 12/17/19 06:30: White Blood Count 12.9H, Red Blood Count 4.67L, Hemoglobin 13.1L, Hematocrit 40.5L, Mean Corpuscular Volume 87, Mean Corpuscular Hemoglobin 28.0, Mean Corpuscular Hemoglobin Concent 32.4, Red Cell Distribution Width 12.8, Platelet Count 210, Mean Platelet Volume 5.8L, Neutrophils (%) (Auto) 81.2H, Lymphocytes (%) (Auto) 8.2L, Monocytes (%) (Auto) 9.5, Eosinophils (%) (Auto) 0.1, Basophils (%) (Auto) 1.1, Sodium Level 144, Potassium Level 3.6, Chloride Level 104, Carbon Dioxide Level 33H, Anion Gap 7, Blood Urea Nitrogen 18, Creatinine 1.1, Estimat Glomerular Filtration Rate > 60, Glucose Level 127H, Calcium Level 8.6, Total Bilirubin 0.5, Aspartate Amino Transf (AST/SGOT) 45H, Alanine Aminotransferase (ALT/SGPT) 120H, Alkaline Phosphatase 90, Total Protein 7.4, Albumin 2.4L, Globulin 5.0, Albumin/Globulin Ratio 0.5L, Lipase 99 12/17/19 18:30: Urine Color Yellow, Urine Appearance Slightly cloudy, Urine pH 7, Urine Specific [place] 1.005, Urine Protein 3+H, Urine Glucose (UA) Negative, Urine Ketones 1+H, Urine Blood 2+H, Urine Nitrite Negative, Urine Bilirubin Negative, Urine Urobilinogen 1H, Urine Leukocyte Esterase 1+H, Urine RBC 0-2H, Urine WBC 5 -10H, Urine Squamous Epithelial Cells ModerateH, Urine Bacteria Few, Urine Mucus ManyH Height (Feet): 6 Height (Inches): 1.00 Weight (Pounds): 473 Objective Obese AA man NCAT supple CTA RR abd soft obese (+) venous stasis edema Narciso Mancini MD Dec 17, 2019 22:01
--- NOTE | 2019-12-17 22:14 | Emergency Room Report ---
History of Present Illness General Chief Complaint: Upper Respiratory Illness Source: Patient Present Illness HPI I was called to the medical floor for CODE ERI. Apparently patient was sitting in a chair on the medical floor and then was found down on the ground. He was in cardiac arrest. ACLS was started prior to my arrival. On my arrival patient remained pulseless and asystole, with absent respirations. As patient was a rule out coronavirus I did require proper PPE prior to entering the room. Allergies: Coded Allergies: PENICILLINS (Verified Allergy, Intermediate, VOMITING/RASH, 10/19/12) COVID-19 Screening Contact w/high risk pt: No Recent Travel to affected area: No Experienced COVID-19 symptoms?: Yes COVID-19 symptoms experienced: Shortness of Breath, Cough, Flu-Like Symptoms Nursing Documentation-[facility] Hx Asthma: Yes Hx Cancer: No Hx Gastrointestinal Problems: Yes - appendectomy in 10/2012 Hx Neurological Problems: No Physical Exam Vital Signs Date Time Temp Pulse Resp B/P (MAP) Pulse Ox O2 Delivery O2 Flow Rate FiO2 12/13/19 07:15 98.2 97 24 145/82 97 Nasal Cannula 4.0 12/16/19 08:02 28 Respiratory: other Procedures CPR/Code Blue CPR/Code Blue Narrative I was called to a CODE BLUE on the medical floor. Patient found down pulseless and apneic. CPR was in progress. Epinephrine had been given 1 time prior to my arrival however patient lost his IV access. I then placed an intraosseous line in the left tibia. The line was patent and functioning. Patient was also intubated by me see intubation note for further details. We completed multiple rounds of ACLS including approximately 4 epinephrine 2 bicarb and 1 calcium. There was no return of spontaneous circulation. Patient was in asystole then PEA and then asystole. After approximately 25 minutes of ACLS the CODE BLUE was called and the patient was pronounced. At that time patient in asystole pupils fixed and dilated with absent respirations Intubation Intubation : Consent: Emergent Intubation Method: orotracheal Tube Size (cm): 7.5 Breath Sounds after Intubation: equal Intubation Complications: no complications Post Intubation Xray: No Attempts: One Patient Tolerated: Well Complications: None Additional Procedure Procedure Narrative Intraosseous line placement Emergent consent implied indication was lack of IV access, using a intraosseous drill a IO line was placed in the left tibia. Positive return of blood, line secured. Patient tolerated procedure well without complication. Medical Decision Making Diagnostic Impression: Primary Impression: Shortness of breath Additional Impression: Rule out coronavirus Last Vital Signs Date Time Temp Pulse Resp B/P (MAP) Pulse Ox O2 Delivery O2 Flow Rate FiO2 12/17/19 19:13 97.6 12/17/19 18:12 113 162/73 12/17/19 16:00 21 97 12/17/19 09:00 Nasal Cannula 2.0 12/16/19 20:05 28 Referrals: NON PHYSICIAN (PCP) Ramakrishna Combs M.D. Dec 17, 2019 22:14
--- NOTE | 2019-12-19 16:55 | Discharge Summary ---
Discharge Summary Discharge Summary _ SUMMARY DATE OF ADMISSION: 12/12/2019 DATE OF EXPIRATION: 12/17/2019 REASON FOR ADMISSION: 54 years old male with past medical history of asthma, morbid obesity, presented to ED due to shortness of breath, cough and vomiting. Patient reported cough for the past few weeks with associated shortness of breath. Patient developed vomiting prior to presentation . Patient also reported occasional diarrhea. Chest pain with coughing was reported, as 6 out of 10 on a scale 1-10. Patient was seen twice prior in the emergency room for the same symptoms. Chest x-ray was stable . Patient completed course of azithromycin. Patient denied any sick contacts or recent traveling. Upon evaluation patient was tachycardic with heart rate 118, tachypneic with respiratory rate 22. Pulse oximetry was stable on room air , and patient was afebrile. Laboratory work-up revealed sodium 131, BUN 18, creatinine 1.4. Glucose 129. AST 53 ALT 70. Lipase 88. Troponin negative, proBNP 38. EKG revealed sinus tachycardia, no acute ischemic changes . Leukocytosis with WBC 16.2, hemoglobin 12.9, hematocrit 39.7 , platelet count 246, lymphocytes 6.8%. Influenza screen was negative. Chest x-ray demonstrated mild subsegmental atelectasis versus infiltrate in the left lung base and mild pulmonary vascular congestion. Patient was tested for COVID 19 infection. Patient subsequently admitted for further management. CONSULTANTS: ID specialist Dr. Sharma GI specialist Dr. Mancini [facility] COURSE: Patient admitted to isolation room. Patient started on empiric IV antibiotic. Supplemental oxygen provided and titrated to keep pulse oximetry above 92%. Nebulizing treatment with bronchodilator provided. Patient started on IV steroids. DVT prophylaxis provided. Antitussive provided as needed. Antibiotic provided as per ID specialist recommendation. COVID 19 was not detected on 2 separate occasions. Sputum culture revealed Toma. Patient was treated empirically for pneumonia. Leukocytosis was improving. Low-grade fever resolved. Blood pressure was managed with beta-tobias and calcium channel otbias. GI specialist followed. CT scan of the abdomen and pelvis was ordered due to GI complaints. Patient started on PPI. Antiemetic provided as needed. CODE BLUE was called on 12/16. Patient apparently was sitting on the chair and then was found down on the ground. Code blue was initiated as per ACLS protocol. Patient remained pulseless and in asystole with absent respiration . Patient was emergently intubated. There was no return of spontaneous circulation. Patient continued to be in asystole, then PEA , then again in asystole. After 25 minutes of the ACLS interventions, CODE BLUE was called off. Patient was pronounced at 21: 51 12/17/19. Cause of : cardiopulmonary arrest FINAL DIAGNOSES: Status post cardiopulmonary arrest. Acute respiratory failure requiring intubation Pneumonia Suspected COVID 19 infection -was ruled out by 2 negative results Shortness of breath Asthma Obesity Chronic edema Lymphopenia Hyponatremia Venous stasis Nausea and vomiting I have been assigned to dictate discharge summary for this account. I was not involved in the patient's management. Nia Morrison NP Dec 19, 2019 16:55
== END 2019-12-17 21:51 | disposition expired | DRG 139 ==
LOC: EDBD 15:48 → EMR 15:50 → 2E 17:59 → EDBEDREQ 12-13 03:59 → 2E 12-13 20:34 → 4E 12-15 15:49
PROC: 0BH17EZ Insertion of Endotracheal Airway into Trachea, Via Natural or Artificial Opening (ICD-10-PCS; principal; 2019-12-17)
DX: J18.9 Pneumonia, unspecified organism (principal); E87.1 Hypo-osmolality and hyponatremia; Z68.44 Body mass index [BMI] 60.0-69.9, adult; Z88.0 Allergy status to penicillin; E66.01 Morbid (severe) obesity due to excess calories; J96.00 Acute respiratory failure, unspecified whether with hypoxia or hypercapnia; J45.909 Unspecified asthma, uncomplicated; R60.9 Edema, unspecified; D72.810 Lymphocytopenia; I87.8 Other specified disorders of veins; R11.2 Nausea with vomiting, unspecified
CPT/HCPCS: 36415; 71045; 80048; 80053; 81003; 83690; 83880; 84484; 85025; 86710; 87070; 87205; 87635; 93005; 94664; 96361; 96365; 96367; 96375; 99285; J2405